=== PATIENT | male | born 1965 | race Caucasian/White ===

== ENCOUNTER → 2018-04-14 10:59 | Outpatient (CLI) | payer SELFPAY ==
--- NOTE | 2018-04-14 11:01 | XR_ITS ---
XR clavicle LT CLINICAL INDICATION: Follow-up fracture ITS.REASON: left clavicle fx ORDERING PHYSICIAN: Richard Armstrong MD PATIENT AGE: 52 years Comparison: 04/06/2018 FINDINGS: Comminuted displaced distal clavicle fracture once again noted. There is 1 cm inferior displacement of the distal fracture fragment with comminution along the infra aspect of the distal fracture fragment. Overall no significant change compared to the previous exam. IMPRESSION: No change comminuted displaced distal clavicle fracture
== END ==
PROVIDERS: Visit Provider Orthopaedic Surgery
DX: S42.032A Displaced fracture of lateral end of left clavicle, initial encounter for closed fracture (principal)
CPT/HCPCS: 73000

== ENCOUNTER → 2018-05-06 12:24 | Outpatient (CLI) | payer OTHER, SELFPAY ==
--- NOTE | 2018-05-06 12:29 | XR_ITS ---
XR clavicle LT CLINICAL INDICATION: Follow-up fracture ITS.REASON: lateral end of clavicle fx ORDERING PHYSICIAN: Richard Armstrong MD PATIENT AGE: 52 years Comparison: 04/14/2018 FINDINGS: Displaced distal clavicular fracture once again noted with 1 cm inferior displacement of the distal fracture fragment with comminution of the distal fracture fragment. No significant callus formation. IMPRESSION: No change displaced comminuted distal clavicle fracture
== END ==
PROVIDERS: Visit Provider Orthopaedic Surgery
DX: S42.002A Fracture of unspecified part of left clavicle, initial encounter for closed fracture (principal)
CPT/HCPCS: 73000

== ENCOUNTER → 2018-05-27 08:40 | Outpatient (CLI) | payer OTHER, SELFPAY ==
--- NOTE | 2018-05-27 08:44 | XR_ITS ---
XR clavicle LT CLINICAL INDICATION: Pain, follow-up fracture ITS.REASON: follow up clavicle fx ORDERING PHYSICIAN: Richard Armstrong MD PATIENT AGE: 52 years Comparison: 05/06/2018 FINDINGS: No significant change in the displaced distal clavicular fracture. The distal fracture fragment is displaced inferiorly x 10 mm. No significant callus formation. IMPRESSION: No change displaced distal clavicular fracture
== END ==
PROVIDERS: Visit Provider Orthopaedic Surgery
DX: S42.002A Fracture of unspecified part of left clavicle, initial encounter for closed fracture (principal)
CPT/HCPCS: 73000

== ENCOUNTER → 2018-08-06 09:20 | Outpatient (CLI) | payer OTHER, SELFPAY ==
--- NOTE | 2018-08-06 09:24 | XR_ITS ---
XR clavicle LT CLINICAL INDICATION: Follow-up clavicular fracture ITS.REASON: left clavicle fracture fu ORDERING PHYSICIAN: Richard Armstrong MD PATIENT AGE: 52 years Comparison: 05/27/2018 FINDINGS: There is a mildly displaced distal clavicular fracture. The distal fracture fragment appears slightly more displaced compared to the previous exam inferiorly and laterally this could be positional. Proximal mid aspect of left clavicle is unremarkable. There is an old right clavicular fracture. IMPRESSION: Displaced distal clavicular fracture with no obvious callus formation
== END ==
PROVIDERS: PCP Family Medicine; Visit Provider Orthopaedic Surgery
DX: S42.002A Fracture of unspecified part of left clavicle, initial encounter for closed fracture (principal)
CPT/HCPCS: 73000

== ENCOUNTER → 2018-08-11 13:28 | Outpatient (CLI) | payer OTHER, SELFPAY ==
--- NOTE | 2018-08-11 13:32 | XR_ITS ---
XR hip RT 2-3V w/pelvis Ordering Physician: Richard Armstrong MD Patient Age: 52 years: Male HISTORY: ITS.REASON: right hip pain TECHNIQUE: AP Right hip AP and frog-leg view. AP pelvis included COMPARISON : CT abdomen and pelvis [2014 FINDINGS Severe arthritic changes right hip. Marked change when compared to normal-appearing right hip June 2014 Findings most compatible with AVN. Frontal projection shows typical Flattening at superior femoral head with collapsed segment and sclerosis of. Frog-leg view nicely demonstrates the sclerotic fragment with lucent margin here at the superior aspect of the femoral head..- This fragment spans over 3 cm wide. There is sclerosis dense sclerosis throughout this fragment. There is a lucent margin with Sclerosis is seen beneath this fragment. Findings suggest Stage IV AVN. There is marked narrowing of the superior joint space with [id number] appearance at the superior left hip joint. The femoral neck is intact. Trochanteric region intact on right. AP pelvis shows a left hip to be intact femoral head on left intact. The SI joints sacrum iliac bones intact. Mild hypertrophic changes about the pubis There are some degenerative changes and marginal osteophytes to the left at the lower L-spine .. IMPRESSION: ------- 1. AVN superior right femoral head. ... Collapse endplate in the superior femoral head with a discrete here. Sclerotic AVN fragment seen at the dome of right femoral head ... Severe resulting arthritic changes right hip joint space. . These Changes here have all developed since 2013 studies
== END ==
PROVIDERS: PCP Family Medicine; Visit Provider Orthopaedic Surgery
DX: M25.551 Pain in right hip (principal)
CPT/HCPCS: 73502

== ENCOUNTER → 2018-08-20 15:33 | Outpatient (CLI) | payer OTHER, SELFPAY ==
[2018-08-20 16:06] LABS: Basophils # 0.1 K/mm3 (0-0.2); Basophils % 1.7 % (0.1-2.0); Eosinophils # 0.4 K/mm3 (0.0-0.4); Eosinophils % 6.4 % (0.1-12.0); Hematocrit 40.1 % (42.0-52.0); Hemoglobin 12.7 g/dL (14.1-18.0); Lymphocytes # 1.7 K/mm3 (0.7-4.5); Lymphocytes % 26.6 % (10-50); Mean Corpuscular HGB Conc 31.6 g/dL (31.8-35.4); Mean Corpuscular Hemoglobin 34.7 pg (27.0-31.2); Mean Corpuscular Volume 110.1 fl (80-94); Mean Platelet Volume 7.7 fl (7.4-10.4); Monocytes # 0.5 K/mm3 (0.1-1.0); Monocytes % 7.9 % (1.7-9.3); Neutrophils # 3.7 K/mm3 (1.8-7.8); Neutrophils % 57.3 % (37.0-80.0); Platelet Count 131 K/mm3 (142-424); Red Blood Count 3.64 M/mm3 (4.60-6.20); Red Cell Distribution Width 13.6 % (11.5-17.5); White Blood Count 6.4 K/mm3 (4.8-10.8)
[2018-08-22 10:57] LABS: Vitamin B12 1363 pg/mL (232-1245)
== END ==
PROVIDERS: Visit Provider Internal Medicine Medical Oncology
DX: D64.9 Anemia, unspecified (principal)
CPT/HCPCS: 36415; 82607; 85025

== ENCOUNTER → 2019-07-07 10:10 | Outpatient (CLI) | payer OTHER, SELFPAY ==
--- NOTE | 2019-07-07 10:23 | XR_ITS ---
PROCEDURE: XR SACROILIAC JOINT BI MIN 3V CLINICAL INDICATION: SI JOINT PAIN,LBP W/SCIATICA Low back pain COMPARISON: XR LUMBAR SPINE MIN 4V from 07/07/2019 FINDINGS: The SI joints have an unremarkable appearance. No lytic or blastic change. No significant degenerative change IMPRESSION: Negative SI joints a the Dictated by: Contreras Dominguez MD 07/07/2019 11:19 Electronically signed by Contreras Dominguez MD in [place] 07/07/2019 11:19
--- NOTE | 2019-07-07 10:23 | XR_ITS ---
PROCEDURE: XR LUMBAR SPINE MIN 4V CLINICAL INDICATION: SI JOINT PAIN,LBP W/SCIATICA Back pain, difficulty walking COMPARISON: ABDPELW/O CT ABD PELVIS W/O CONTRAST from 06/26/2014 FINDINGS: Mild lumbar curvature convex right. Left-sided bridging osteophytes are present at L3-L4. Mild facet arthritic changes are present at L4-5. No fracture or dislocation. There is degenerative disc disease at T12-L1 and L5-S1. No fracture or dislocation. Generalized vascular calcification noted and there is a total right hip prosthesis present IMPRESSION: Mild degenerative changes as described above Dictated by: Contreras Dominguez MD 07/07/2019 11:13 Electronically signed by Contreras Dominguez MD in [place] 07/07/2019 11:13
== END ==
PROVIDERS: PCP Family Medicine; Visit Provider Family Medicine
DX: M54.5 Low back pain (principal); M54.31 Sciatica, right side
CPT/HCPCS: 72110; 72202

== ENCOUNTER 2019-07-16 09:48 | Outpatient (RCR) | payer OTHER, SELFPAY | END 2019-07-16 09:50 | disposition home or self-care (01) | LOC: PT 09:48 | PROVIDERS: Visit Provider Family Medicine | DX: M54.31 Sciatica, right side (principal) | CPT/HCPCS: 97163 ==

== ENCOUNTER 2020-06-21 11:13 | Observation (INO) | payer OTHER, SELFPAY ==
[2020-06-21] VITALS (12 sets, daily range): BP systolic 119–168; BP diastolic 74–100; PULSE 62–105; RESP 16–20; TEMP 36.7–36.9; O2SAT 96–98; BMI 19.8; BMI 17.4
--- NOTE | 2020-06-21 11:39 | HMH.EDALCO ---
ED Disposition Clinical Impression: Dehydration Alcohol withdrawal syndrome Qualifiers: Complication of substance-induced condition: with unspecified complication Qualified Code(s): F10.239 - Alcohol dependence with withdrawal, unspecified Disposition: Admitted As Inpatient Condition on Discharge: Fair - Critical Care Critical Care Time: No Attestation: On 06/21/20, the high probability of a clinically significant, sudden or life threatening deterioration of the following system(s) required my full and direct attention, intervention and personal management. The time I documented below is in addition to time spent performing reported procedures but includes the following listed in this critical care notation. Medical Decision Making - Medical Records Medical records reviewed: Yes: I reviewed the patient's medical records. - Todd Inquiry Pt receiving controlled substance: Yes Todd was queried for this patient: No Reason not queried -: Emergent pt cond-no time Risks and benefits of using a controlled substance: were discussed with pt by me Vital Signs: 06/21/20 11:23 06/21/20 12:09 06/21/20 12:38 Temperature 98.1 F Temperature Source Oral Pulse Rate [Right Brachial] 105 H 85 62 Respiratory Rate 17 Blood Pressure [Right Arm] 168/100 H 141/90 H 131/83 Blood Pressure Mean [Right Arm] 122 107 99 Blood Pressure Source [Right Arm] Automatic Cuff Automatic Cuff Automatic Cuff Blood Pressure Position [Right Arm] Sitting Sitting Sitting 02 Sat by Pulse Oximetry 96 98 98 Oxygen Delivery Method Room Air Room Air Room Air - Lab Data Lab results reviewed: Yes: I reviewed the patient's lab results. Lab Results 06/21/20 12:05: WBC 6.2, RBC 4.57 L, Hgb 16.7, Hct 48.3, MCV 105.6 H, MCH 36.5 H, MCHC 34.5, RDW 13.7, Plt Count 121 L, MPV 8.6, Neut % (Auto) 59.5, Lymph % (Auto) 27.6, Yancey % (Auto) 10.3 H, Eos % (Auto) 1.2, Baso % (Auto) 1.4, Neut # (Auto) 3.7, Lymph # (Auto) 1.7, [place]ancey # (Auto) 0.6, Eos # (Auto) 0.1, Baso # (Auto) 0.1 06/21/20 12:05: Sodium 137, Potassium 3.4 L, Chloride 99, Carbon Dioxide 23, Anion Gap 18.4 H, BUN 4 L, Creatinine 0.70, Estimated Creat Clear 119, Estimated GFR 118, Est GFR ( Amer) 143, Glucose 200 H, Calcium 9.2, Total Bilirubin 2.3 H, AST 218 H, ALT 91 H, Alkaline Phosphatase 81, Total Protein 7.6, Albumin 4.3, Globulin 3.3 H, Albumin/Globulin Ratio 1.3, Lipase 317 H 06/21/20 12:05: Plasma/Serum Alcohol 59 H Result diagrams: 06/21/20 12:05 06/21/20 12:05 Orders (Tests/Meds): ED MEDICATIONS Generic Name Dose Route Start Last Admin Trade Name Freq PRN Reason Stop Dose Admin Folic Acid 1 mg 06/21/20 13:00 Folic Acid 1mg Tablet PO 07/21/20 12:59 DAILY JOHNNA Haloperidol 5 mg 06/21/20 12:45 Haloperidol 5 Mg Tablet PO 07/21/20 12:44 Q1HP PRN Agitation Sodium Chloride 1,000 mls @ 999 mls/hr 06/21/20 12:15 06/21/20 12:12 Sod Chlor 0.9% 1000ml Bag IV 06/21/20 13:15 999 mls/hr .Q1H1M JOHNNA Administration Sodium Chloride 1,000 mls @ 999 mls/hr 06/21/20 12:45 Sod Chlor 0.9% 1000ml Bag IV 06/21/20 13:45 .Q1H1M JOHNNA Multivitamins 10 ml/ Thiamine 1,015 mls @ 150 mls/hr 06/21/20 12:45 HCl 100 mg/ Magnesium Sulfate IV 06/21/20 19:30 2 gm/ Lactated Ringer's .Q6H46M JOHNNA Ibuprofen 400 mg 06/21/20 12:43 Ibuprofen 400 Mg Tablet PO 07/21/20 12:42 Q6HP PRN Mild Pain Multivitamins 1 each 06/21/20 17:00 Multivitamin Tablet PO 07/21/20 16:59 1700 [facility] Ondansetron HCl 4 mg 06/21/20 12:43 Ondansetron 4mg/2ml Vial IV 07/21/20 12:42 Q8HP PRN Nausea Oxazepam 15 mg 06/23/20 13:00 Oxazepam 15 Mg Capsule PO 07/23/20 12:59 Q6H JOHNNA Oxazepam 30 mg 06/21/20 12:45 Oxazepam 15 Mg Capsule PO 06/23/20 06:46 Q6H JOHNNA Pantoprazole Sodium 40 mg 06/22/20 09:00 Pantoprazole 40mg Tablet PO 07/22/20 08:59 DAILY JOHNNA Thiamine HCl 100 mg 06/21/20 13:00 Thiamine 100mg Tablet
[2020-06-21 12:25] LABS: Basophils # 0.1 K/mm3 (0-0.2); Basophils % 1.4 % (0.1-2.0); Eosinophils # 0.1 K/mm3 (0.0-0.4); Eosinophils % 1.2 % (0.1-12.0); Hematocrit 48.3 % (42.0-52.0); Hemoglobin 16.7 g/dL (14.1-18.0); Lymphocytes # 1.7 K/mm3 (0.7-4.5); Lymphocytes % 27.6 % (10-50); Mean Corpuscular HGB Conc 34.5 g/dL (31.8-35.4); Mean Corpuscular Hemoglobin 36.5 pg (27.0-31.2); Mean Corpuscular Volume 105.6 fl (80-94); Mean Platelet Volume 8.6 fl (7.4-10.4); Monocytes # 0.6 K/mm3 (0.1-1.0); Monocytes % 10.3 % (1.7-9.3); Neutrophils # 3.7 K/mm3 (1.8-7.8); Neutrophils % 59.5 % (37.0-80.0); Platelet Count 121 K/mm3 (142-424); Red Blood Count 4.57 M/mm3 (4.60-6.20); Red Cell Distribution Width 13.7 % (11.5-17.5); White Blood Count 6.2 K/mm3 (4.8-10.8)
[2020-06-21 12:27] LABS: Chloride 99 mmol/L (98-107); Potassium 3.4 mmoL/L (3.5-5.1); Sodium 137 mmol/L (136-145)
[2020-06-21 12:30] LABS: Alanine Aminotransferase 91 U/L (12-78); Albumin Level 4.3 g/dl (3.5-5.0); Albumin/Globulin Ratio 1.3 (1.1-1.8); Alkaline Phosphatase 81 U/L (38-126); Anion Gap 18.4 mEq/L (5-15); Aspartate Amino Transferase 218 U/L (17-59); Bilirubin,Total 2.3 mg/dl (0.2-1.3); Blood Urea Nitrogen 4 mg/dl (9-20); Calcium 9.2 mg/dl (8.4-10.2); Carbon Dioxide 23 mmol/L (22.0-30.0); Creatinine Clearance Estimated 119 mL/min (50-200); Estimated Glomerular Filt Rate 118 ml/min (>60); GFR (African American) 143 ML/MIN (>60); Globulin 3.3 g/dL (1.3-3.2); Glucose 200 mg/dl (74-100); Lipase 317 U/L (23-300); Total Protein,Serum 7.6 g/dl (6.3-8.2)
[2020-06-21 12:31] LABS: Ethyl Alcohol 59 mg/dl (0-10)
--- NOTE | 2020-06-21 12:40 | PC.NURSE ---
CASEY GARDNER speaking with Dr. Flaherty who is neurological surgeon for service pts.
--- NOTE | 2020-06-21 12:43 | PC.NURSE ---
Care Management aware of admission.
[2020-06-21 13:27] LABS: Magnesium 1.6 mg/dl (1.6-2.3)
[2020-06-21 13:28] LABS: Phosphorous 1.7 mg/dl (2.5-4.5)
[2020-06-21 13:34] LABS: INR 1.28 (0.9-1.1); Prothrombin Time 13.9 seconds (9.4-11.8)
[2020-06-21 13:35] LABS: Activated Partial Thrombo Time 26.5 seconds (23.6-34.0)
--- NOTE | 2020-06-21 13:52 | HMH.PHAVTE ---
[facility] Pharmacy VTE Monitoring - Patient Demographics Admission date: 06/21/20 Report Date: 06/21/20 Time: 13:52 Allergies/Adverse Reactions: Patient Allergies No Known Drug Allergies [NKDA] Allergy (Unknown, Verified 06/21/20 11:33) Height: 1.85 m Weight: 68.039 kg Patient Problems: Current Active Problems Alcohol withdrawal syndrome (Acute) Dehydration (Acute) - VTE Risk Labs: VTE Related Lab Results Hgb 16.7 g/dL (14.1-18.0) 06/21/20 12:05 Hct 48.3 % (42.0-52.0) 06/21/20 12:05 Plt Count 121 K/mm3 (142-424) L 06/21/20 12:05 PT 13.9 seconds (9.4-11.8) H 06/21/20 12:05 INR 1.28 (0.9-1.1) H 06/21/20 12:05 APTT 26.5 seconds (23.6-34.0) 06/21/20 12:05 BUN 4 mg/dl (9-20) L 06/21/20 12:05 Creatinine 0.70 mg/dl (0.66-1.25) 06/21/20 12:05 Estimated Creat Clear 119 mL/min (50-200) 06/21/20 12:05 Clinical Trial Participant: No - Prophylaxis VTE Prophylaxis Ordered?: Yes Types of VTE Prophylaxis: TEDS Knee High
[2020-06-21 13:53] LABS: Coronavirus 19 IgG Antibody Negative (Negative); Coronavirus 19 IgM Antibody Negative (Negative)
--- NOTE | 2020-06-21 14:04 | PC.NURSE ---
report given to candern
[2020-06-21 15:54] LABS: Microscopic, Urine URINE MICROSCOPIC (MICROSCOPIC)
[2020-06-21 15:55] LABS: Appearance,Urine CLEAR (Clear); Bilirubin,Urine Negative (Negative); Blood, Urine Negative (Negative); Color,Urine YELLOW (Yellow); Glucose,Urine (UA) Negative (Negative); Ketones,Urine Negative (Negative); Leukocyte Esterase,Urine Negative (Negative); Nitrate,Urine Negative (Negative); PH,Urine 8.5 (5.0-8.5); Protein,Urine Negative (Negative)
[2020-06-21 16:07] LABS: Barbiturates Screen,Urine Negative ng/ml (<200); Benzodiazepines Screen,Urine Negative ng/ml (<200)
[2020-06-21 16:08] LABS: Amphetamine/Metha Screen,Urine Negative ng/ml (<1000); Cocaine Screen,Urine Negative ng/ml (<300)
[2020-06-21 16:09] LABS: Methadone Screen,Urine Negative ng/ml (<300)
[2020-06-21 16:10] LABS: Cannabinoid Screen,Urine Positive ng/ml (<50); Opiate Screen,Urine Negative ng/ml (<300)
[2020-06-21 16:11] LABS: Phencyclidine Screen,Urine Negative ng/ml (<25)
[2020-06-21 16:11] LABS: Bacteria,Urine 1+ /lpf; RBC,Urine Occasional #/hpf (0-3)
--- NOTE | 2020-06-21 17:08 | HMH.HP ---
*Admission Date: 06/21/20 <Kimberlee Schmidt 06/21/20 17:10> *Chief complaint: Alcohol withdrawal <Kimberlee Schmidt 06/21/20 17:34> *History of present illness: Mr. Mejia is a 54-year-old male with a history of hypertension and known Alcoholism who presented to the emergency room for evaluation of alcohol withdrawal. Initially he was not sure which direction he wished to proceed, that is inpatient hospitalization versus inpatient treatment facility or detoxing at home. He did try to detox at home the yesterday but was so anxious and tremulous that he ended up drinking throughout the night and actually took a shot of vodka just prior to arrival to the emergency room. He reported that he had tried detox 3 times. He actually did not drink for total of 120 days at one time. This was about a year ago. He has been drinking on and off for the past year and states this is due to family issues and family deaths. He feels nauseated when he eats and feels like he is dehydrated. He does complain of ongoing feelings of anxiety and is tremulous. He presented to the hospital with his daughter who is a nursing center tutor. Options were discussed with him in the emergency room and he decided to be admitted for further care with detox. Drug screen was positive for marijuana. Plasma alcohol level was high at 59. SARS Covid IgG was negative and IgM was negative. Liver function studies were elevated. Potassium was slightly low. At the time of this exam patient remains very anxious and somewhat tremulous at times. He has been placed on alcohol withdrawal orders. He will also have a nicotine patch placed. <Kimberlee Schmidt 06/21/20 17:34> [facility] History Medical History: Reports:: Hypertension Denies:: Cancer, Diabetes Mellitus Type 1, Diabetes Mellitus Type 2, MRSA <Kimberlee Schmidt 06/21/20 17:10> *Have you ever received a pneumonia vaccine?: No <Schmidt,Kimbelree 06/21/20 17:10> *Have you received a flu vaccine this season?: No <Schmidt,Kimberlee 06/21/20 17:10> Comment:: Patient states he has esophageal varices, cirrhosis of liver, sciatica, right hip pain, and left clavicle pain from a fracture. <Kimberlee Schmidt 06/21/20 17:34> Other Surgeries: Yes: No Previous Surgery <Kimberlee Schmidt 06/21/20 17:10> Amputation: No <Kimberlee Schmidt 06/21/20 17:10> - *Social History Last grade of school completed: Some college <Kimberlee Schmidt 06/21/20 17:10> Smoking Status: Current every day smoker <Kimberlee Schmidt 06/21/20 17:10> Tobacco Type: cigarettes <Kimberlee Schmidt 06/21/20 17:10> # Packs/Day (cigarettes): 1 <Kimberlee Schmidt 06/21/20 17:10> Alcohol Intake: current <Kimberlee Schmidt 06/21/20 17:10> Alcohol Intake Frequency:: other (Drinks a gallon of vodka a day.) <BrayanKimberlee 06/21/20 17:34> Substance Use Type: marijuana <Kimberlee Schmidt 06/21/20 17:34> *Occupational Status:: employed <BrayanKimberlee 06/21/20 17:10> Housing: apartment <Kimberlee Schmidt 06/21/20 17:10> Household Members: children <Kimberlee Schmidt 06/21/20 17:10> *Travel in the last 8 weeks: None <BrayanKimberlee 06/21/20 17:10> Family Hx:: Hypertension <BrayanKimberlee 06/21/20 17:10> Review of Systems - Constitutional Reports chills, Reports lack of energy <BrayanKimberlee 06/21/20 17:34> - Eyes Reports change in vision <BrayanKimberlee 06/21/20 17:34> - ENT Denies ear pain, Denies sore throat <BrayanKimberlee 06/21/20 17:34> - *Cardiovascular Reports shortness of breath, Denies chest pain, Denies generalized swelling, Denies irregular heart rhythm, Denies leg swelling, Denies rapid, pounding, or irregular heartbeat <SchmidtKimberlee Luz 06/21/20 17:34> - *Respiratory Denies chest congestion, Denies cough, Denies shortness of breath <SchmidtKimberlee 06/21/20 17:34> - *Gastrointestinal Reports nausea, Denies abdominal pain, Denies coffee ground vomit, Denies constipation, Denies vomiting blood, Denies bright, red blood in stools, Denies loose stools, Denies tricia
[2020-06-21 17:41] LABS: Basophils # 0.1 K/mm3 (0-0.2); Eosinophils # 0.1 K/mm3 (0.0-0.4); Mean Platelet Volume 8.8 fl (7.4-10.4); Neutrophils # 3.3 K/mm3 (1.8-7.8); Red Cell Distribution Width 13.2 % (11.5-17.5)
[2020-06-21 17:43] LABS: Basophils % 1.5 % (0.1-2.0); Eosinophils % 2.2 % (0.1-12.0); Hematocrit 44.2 % (42.0-52.0); Lymphocytes # 1.6 K/mm3 (0.7-4.5); Lymphocytes % 29.1 % (10-50); Mean Corpuscular HGB Conc 33.8 g/dL (31.8-35.4); Mean Corpuscular Hemoglobin 36.7 pg (27.0-31.2); Mean Corpuscular Volume 108.5 fl (80-94); Monocytes # 0.3 K/mm3 (0.1-1.0); Monocytes % 6.2 % (1.7-9.3); Neutrophils % 60.9 % (37.0-80.0); Platelet Count 95 K/mm3 (142-424); Red Blood Count 4.08 M/mm3 (4.60-6.20); White Blood Count 5.4 K/mm3 (4.8-10.8)
[2020-06-21 17:45] LABS: Hemoglobin 14.9 g/dL (14.1-18.0)
[2020-06-21 17:53] LABS: Chloride 103 mmol/L (98-107)
[2020-06-21 17:54] LABS: Potassium 3.1 mmoL/L (3.5-5.1); Sodium 135 mmol/L (136-145)
[2020-06-21 17:56] LABS: Alanine Aminotransferase 89 U/L (12-78); Alkaline Phosphatase 63 U/L (38-126); Anion Gap 11.1 mEq/L (5-15); Aspartate Amino Transferase 206 U/L (17-59); Bilirubin,Total 2.2 mg/dl (0.2-1.3); Blood Urea Nitrogen 4 mg/dl (9-20); Carbon Dioxide 24 mmol/L (22.0-30.0); Creatinine Clearance Estimated 122 mL/min (50-200); Estimated Glomerular Filt Rate 141 ml/min (>60); GFR (African American) 171 ML/MIN (>60)
[2020-06-21 17:57] LABS: Albumin Level 3.6 g/dl (3.5-5.0); Albumin/Globulin Ratio 1.2 (1.1-1.8); Globulin 2.9 g/dL (1.3-3.2); Glucose 223 mg/dl (74-100); Magnesium 2.1 mg/dl (1.6-2.3); Total Protein,Serum 6.5 g/dl (6.3-8.2)
[2020-06-21 17:58] LABS: Calcium 8.3 mg/dl (8.4-10.2)
[2020-06-21 18:09] LABS: Activated Partial Thrombo Time 23.3 seconds (23.6-34.0); Phosphorous 1.9 mg/dl (2.5-4.5)
--- NOTE | 2020-06-21 19:16 | PC.NURSE ---
report given to quang
--- NOTE | 2020-06-21 19:31 | PC.NURSE ---
PT AO*4, ABLE TO FOLLOW COMMANDS, WHEN FIRST ARRIVING TO FLOOR, PT HAD NOTICEABLE TREMORS IN BUE, AT THIS TIME PATIENT TREMORS HAVE DECREASED AND HE IS RESTING MORE COMFORTABLY, CIWA COMPLETED AT TIME OF WRITING PATIENT IS 5 ON CIWA SCALE, HE HAS DENIED PAIN AND N/V/D, CURRENTLY ON RA WITH NO C/O SOA, LUNGS CLEAR TO AUSCULTATION, SEIZURE PADS IN PLACE, FAMILY AT BEDSIDE, BP HAS BEEN ELEVATED BUT STABLE SINCE ADMISSION TO UNIT, NO NEEDS AT THIS TIME.
[2020-06-22] VITALS (8 sets, daily range): BP systolic 126–147; BP diastolic 71–83; PULSE 70–93; RESP 16–20; TEMP 36.4–37.2; O2SAT 94–98; BMI 17.4
--- NOTE | 2020-06-22 04:23 | PC.NURSE ---
Pt has slept most of this shift. CIWA has ranged 4-5 this shift. DT s/sx have been hand tremors and sweating. Pt remains pleasant. Denies soa/pain. Daughter remains at bedside.
[2020-06-22 06:33] LABS: Basophils # 0.1 K/mm3 (0-0.2); Basophils % 1.4 % (0.1-2.0); Eosinophils # 0.2 K/mm3 (0.0-0.4); Eosinophils % 3.9 % (0.1-12.0); Hematocrit 40.3 % (42.0-52.0); Hemoglobin 13.5 g/dL (14.1-18.0); Lymphocytes # 2.2 K/mm3 (0.7-4.5); Lymphocytes % 36.3 % (10-50); Mean Corpuscular HGB Conc 33.5 g/dL (31.8-35.4); Mean Corpuscular Hemoglobin 36.3 pg (27.0-31.2); Mean Corpuscular Volume 108.1 fl (80-94); Mean Platelet Volume 8.6 fl (7.4-10.4); Monocytes # 0.4 K/mm3 (0.1-1.0); Monocytes % 7.2 % (1.7-9.3); Neutrophils # 3.1 K/mm3 (1.8-7.8); Neutrophils % 51.2 % (37.0-80.0); Platelet Count 79 K/mm3 (142-424); Red Blood Count 3.73 M/mm3 (4.60-6.20); Red Cell Distribution Width 13.6 % (11.5-17.5); White Blood Count 6.1 K/mm3 (4.8-10.8)
[2020-06-22 06:47] LABS: Chloride 108 mmol/L (98-107); Sodium 135 mmol/L (136-145)
[2020-06-22 06:48] LABS: Potassium 3.4 mmoL/L (3.5-5.1)
[2020-06-22 06:50] LABS: Alanine Aminotransferase 64 U/L (12-78); Albumin Level 2.9 g/dl (3.5-5.0); Alkaline Phosphatase 55 U/L (38-126); Anion Gap 7.4 mEq/L (5-15); Aspartate Amino Transferase 114 U/L (17-59); Bilirubin,Total 1.9 mg/dl (0.2-1.3); Blood Urea Nitrogen 5 mg/dl (9-20); Carbon Dioxide 23 mmol/L (22.0-30.0); Creatinine Clearance Estimated 121 mL/min (50-200); Estimated Glomerular Filt Rate 141 ml/min (>60); GFR (African American) 171 ML/MIN (>60); Globulin 2.8 g/dL (1.3-3.2); Total Protein,Serum 5.7 g/dl (6.3-8.2)
[2020-06-22 06:51] LABS: Calcium 7.6 mg/dl (8.4-10.2); Glucose 126 mg/dl (74-100)
--- NOTE | 2020-06-22 08:22 | HMH.ACPN2 ---
Internal Medicine - PN: Subj *Date: 06/22/20 *Time: 08:22 Interval history: Patient feels better today. He was able to eat a small amount of breakfast this morning. Exam Vital signs and Labs for Last 24 Hours: Temp Pulse Resp BP Pulse Ox 97.6 F 93 H 18 133/81 96 06/22/20 07:53 06/22/20 07:53 06/22/20 07:53 06/22/20 07:53 06/22/20 07:53 Laboratory Results - last 24 hr 06/21/20 12:01: Urine Color Yellow, Urine Appearance Clear, Urine pH 8.5, Ur Specific West[place] 1.020, Urine Protein Negative, Urine Glucose (UA) Negative, Urine Ketones Negative, Urine Blood Negative, Urine Nitrate Negative, Urine Bilirubin Negative, Urine Urobilinogen 1.0, Ur Leukocyte Esterase Negative, Urine RBC Occasional, Urine WBC 3-5, Ur Squamous Epith Cells 3-5, Urine Bacteria 1+ 06/21/20 12:05: WBC 6.2, RBC 4.57 L, Hgb 16.7, Hct 48.3, MCV 105.6 H, MCH 36.5 H, MCHC 34.5, RDW 13.7, Plt Count 121 L, MPV 8.6, Neut % (Auto) 59.5, Lymph % (Auto) 27.6, [place] % (Auto) 10.3 H, Eos % (Auto) 1.2, Baso % (Auto) 1.4, Neut # (Auto) 3.7, Lymph # (Auto) 1.7, [place] # (Auto) 0.6, Eos # (Auto) 0.1, Baso # (Auto) 0.1 06/21/20 12:05: Sodium 137, Potassium 3.4 L, Chloride 99, Carbon Dioxide 23, Anion Gap 18.4 H, BUN 4 L, Creatinine 0.70, Estimated Creat Clear 119, Estimated GFR 118, Est GFR ( Amer) 143, Glucose 200 H, Calcium 9.2, Total Bilirubin 2.3 H, AST 218 H, ALT 91 H, Alkaline Phosphatase 81, Total Protein 7.6, Albumin 4.3, Globulin 3.3 H, Albumin/Globulin Ratio 1.3, Lipase 317 H 06/21/20 12:05: Plasma/Serum Alcohol 59 H 06/21/20 12:05: PT 13.9 H, INR 1.28 H, APTT 26.5 06/21/20 12:05: Phosphorus 1.7 L, Magnesium 1.6 06/21/20 12:05: SARS-CoV-2 IgG Ab (Rapid) Negative, SARS-CoV-2 IgM Ab (Rapid) Negative 06/21/20 15:32: Urine Opiates Screen Negative, Urine Methadone Screen Negative, Ur Barbituates Screen Negative, Ur Phencyclidine Scrn Negative, Ur Amphetamines Screen Negative, U Benzodiazepines Scrn Negative, Urine Cocaine Screen Negative, U Marijuana (THC) Screen Positive H 06/21/20 17:32: WBC 5.4, RBC 4.08 L, Hgb 14.9 D, Hct 44.2, MCV 108.5 H, MCH 36.7 H, MCHC 33.8, RDW 13.2, Plt Count 95 L, MPV 8.8, Neut % (Auto) 60.9, Lymph % (Auto) 29.1, [place] % (Auto) 6.2, Eos % (Auto) 2.2, Baso % (Auto) 1.5, Neut # (Auto) 3.3, Lymph # (Auto) 1.6, [place] # (Auto) 0.3, Eos # (Auto) 0.1, Baso # (Auto) 0.1 06/21/20 17:32: APTT 23.3 L 06/21/20 17:32: Sodium 135 L, Potassium 3.1 L, Chloride 103, Carbon Dioxide 24, Anion Gap 11.1, BUN 4 L, Creatinine 0.60 L, Estimated Creat Clear 122, Estimated GFR 141, Est GFR ( Amer) 171, Glucose 223 H, Calcium 8.3 L, Phosphorus 1.9 L, Magnesium 2.1 D, Total Bilirubin 2.2 H, AST 206 H, ALT 89 H, Alkaline Phosphatase 63, Total Protein 6.5, Albumin 3.6 D, Globulin 2.9, Albumin/Globulin Ratio 1.2 06/22/20 06:07: WBC 6.1, RBC 3.73 L, Hgb 13.5 L, Hct 40.3 L, MCV 108.1 H, MCH 36.3 H, MCHC 33.5, RDW 13.6, Plt Count 79 L, MPV 8.6, Neut % (Auto) 51.2, Lymph % (Auto) 36.3, [place] % (Auto) 7.2, Eos % (Auto) 3.9, Baso % (Auto) 1.4, Neut # (Auto) 3.1, Lymph # (Auto) 2.2, [place] # (Auto) 0.4, Eos # (Auto) 0.2, Baso # (Auto) 0.1 06/22/20 06:07: Sodium 135 L, Potassium 3.4 L, Chloride 108 H, Carbon Dioxide 23, Anion Gap 7.4, BUN 5 L, Creatinine 0.60 L, Estimated Creat Clear 121, Estimated GFR 141, Est GFR ( Amer) 171, Glucose 126 H D, Calcium 7.6 L, Total Bilirubin 1.9 H, AST 114 H D, ALT 64 D, Alkaline Phosphatase 55, Total Protein 5.7 L, Albumin 2.9 L D, Globulin 2.8, Albumin/Globulin Ratio 1.0 L I & O for Last 24 hours: Intake & Output 06/19/20 06/20/20 06/21/20 06/22/20 23:59 23:59 23:59 23:59 Intake Total 1793 / 1793 Balance 1793 / 1793 Weight 132 lb 131 lb 3.506 oz - Constitutional no acute distress - *Routine HEENT Exam Head: Present: normocephalic Eye: Present: EOMI ENT: Present: mucous membranes moist - *Routine Neck Exam Present: supple. Absent: lymphadenopathy - *Routine Respiratory Exam Present: CTA bilaterally - *Routin
--- NOTE | 2020-06-22 10:18 | PC.NURSE ---
MD LEVI ASKED ABOUT FLUID ORDERS STATED TO COMPLETE INFUSION OF NS/ [id number] BEFORE BEGINNING RALLY PACK.
--- NOTE | 2020-06-22 11:12 | SW/DCPLANNER ---
Addendum entered by Marilee Mejia 06/23/20 11:57: I have followed up with this patient regarding any questions/assistance with resources provided yesterday. Patient stated that he has no further questions at this time. Patient stated that he needs to follow up with his boss prior to making any decisions. I have informed patient if he has any further questions please contact MD office or CM office. Addendum entered by Juliana Duncan 06/22/20 13:14: TOOK PATIENT INFORMATION WITH NAMES AND PHONE NUMBERS OF FACILITIES CLOSE TO THIS AREA AND ALSO SOME OUT PATIENT NUMBERS.. PATIENT TOLD ME HE HAD BEEN IN A COUPLE DIFFERENT INPATIENT OUT OF [facility] AND BEEN TO [facility] TWICE. PATIENT WAS PLEASANT AND ADMITTED HE HAD A PROBLEM AND TALKED TO ME LIKE HE WAS GOING TO DO SOMETHING ABOUT HIS DRINKING.. I EXPLAINED TO HIM THE ILL EFFECTS OF DRINKING...DISPOSITION UNCERTAIN, WILL FOLLOW AND ASSIST INDICATED.. Original Note: PATIENT PRESENTED INTO THE HOSPITAL WITH A BLOOD ALCOHOL OF 59... PATIENT STATED HE DRINKS A GALLON OF VOLKA A DAY.. HE STATED HE HAS TRIED TO DETOX BUT GETS ANXIOUS, TREMULOUS AND FEELS A THOUGH HE IS DEHYDRATED... I AM GOING TO SPEAK WITH HIM ABOUT REHAB SERVICES AND PROVIDE HIM WITH A LIST OF INPATIENT AND OUT PATIENT SERVICES CLOSE TO HOME... NOT SURE WHEN HE IS GOING TO DISCHARGE BUT WILL PROVIDE HIM WITH A LIST IN CASE INPATIENT IS NECESSARY...
--- NOTE | 2020-06-22 17:41 | PC.NURSE ---
PT AP*4, ANSWERS APPROPRIATELY AND FOLLOWS COMMANDS, PERIPHERAL TREMORS HAVE DECREASED TODAY, PT HAS NO REQUIRED PRN HALDOL THIS SHIFT, APPETITE HAS INCREASED, PT DENIES HALLUCINATIONS, NOT CURRENTLY DIAPHORETIC, DENIES PAIN/UNUSUAL SENSATIONS, VSS STABLE, NSR ON TELE, O2 SAT WNL ON RA, DENIES N/V/D, WILL CONTINUE TO MONITOR.
--- NOTE | 2020-06-22 20:23 | PC.NURSE ---
He is A&Ox4. He continues in seizure precautions. No seizure activity noted. CIWA scale 1 at this time. He reports anxiety, tremors, and diarrhea. States his last BM was on today (06/22/20). He reports mild cravings. Denies hallucinations, nausea, vomiting, and sensitivity to light and sound. He received a [place] boost per his request. denies pain. VSS.
[2020-06-23 04:00] VITALS: BP 133/76; PULSE 82; RESP 18; TEMP 37; O2SAT 95
[2020-06-23 05:20] VITALS: BMI 17.2
[2020-06-23 06:30] LABS: Basophils # 0.1 K/mm3 (0-0.2); Basophils % 1.2 % (0.1-2.0); Eosinophils # 0.4 K/mm3 (0.0-0.4); Eosinophils % 5.4 % (0.1-12.0); Hematocrit 43.8 % (42.0-52.0); Hemoglobin 14.6 g/dL (14.1-18.0); Lymphocytes % 26.6 % (10-50); Mean Corpuscular HGB Conc 33.3 g/dL (31.8-35.4); Mean Corpuscular Hemoglobin 36.4 pg (27.0-31.2); Mean Corpuscular Volume 109.4 fl (80-94); Mean Platelet Volume 8.8 fl (7.4-10.4); Monocytes # 0.6 K/mm3 (0.1-1.0); Monocytes % 7.6 % (1.7-9.3); Neutrophils # 4.4 K/mm3 (1.8-7.8); Neutrophils % 59.1 % (37.0-80.0); Platelet Count 75 K/mm3 (142-424); Red Blood Count 4.01 M/mm3 (4.60-6.20); Red Cell Distribution Width 13.4 % (11.5-17.5); White Blood Count 7.4 K/mm3 (4.8-10.8)
[2020-06-23 06:37] LABS: Chloride 106 mmol/L (98-107); Potassium 4.3 mmoL/L (3.5-5.1); Sodium 135 mmol/L (136-145)
[2020-06-23 06:40] LABS: Anion Gap 10.3 mEq/L (5-15); Blood Urea Nitrogen 7 mg/dl (9-20); Carbon Dioxide 23 mmol/L (22.0-30.0); Creatinine Clearance Estimated 120 mL/min (50-200); Estimated Glomerular Filt Rate 141 ml/min (>60); GFR (African American) 171 ML/MIN (>60); Glucose 136 mg/dl (74-100)
[2020-06-23 07:14] LABS: Calcium 8.5 mg/dl (8.4-10.2)
[2020-06-23 08:00] VITALS: BP 135/88; PULSE 85; RESP 18; TEMP 36.9; O2SAT 95
--- NOTE | 2020-06-23 08:50 | PC.NURSE ---
confirmed with Dr. Flaherty regarding IVFs. Pt is to receive Rally pack bag daily. Stop NS+20K IVFs while Rally pack is infusing. Once rally pack is finished, restart NS+20K.
--- NOTE | 2020-06-23 08:59 | HMH.ACPN2 ---
Internal Medicine - PN: Subj *Date: 06/23/20 *Time: 08:59 Interval history: Patient states he had a bad night last night. He did not sleep well and had some sweats. Exam Vital signs and Labs for Last 24 Hours: Temp Pulse Resp BP Pulse Ox 98.6 F 82 18 133/76 95 06/23/20 04:00 06/23/20 04:00 06/23/20 04:00 06/23/20 04:00 06/23/20 04:00 Laboratory Results - last 24 hr 06/23/20 06:10: WBC 7.4, RBC 4.01 L, Hgb 14.6, Hct 43.8, MCV 109.4 H, MCH 36.4 H, MCHC 33.3, RDW 13.4, Plt Count 75 L, MPV 8.8, Neut % (Auto) 59.1, Lymph % (Auto) 26.6, [place] % (Auto) 7.6, Eos % (Auto) 5.4, Baso % (Auto) 1.2, Neut # (Auto) 4.4, Lymph # (Auto) 2.0, [place] # (Auto) 0.6, Eos # (Auto) 0.4, Baso # (Auto) 0.1 06/23/20 06:10: Sodium 135 L, Potassium 4.3 D, Chloride 106, Carbon Dioxide 23, Anion Gap 10.3, BUN 7 L D, Creatinine 0.60 L, Estimated Creat Clear 120, Estimated GFR 141, Est GFR ( Amer) 171, Glucose 136 H, Calcium 8.5 D Vital Signs - 24 hr 06/22/20 12:00 06/22/20 16:00 06/22/20 20:00 Temperature 98.9 F 98.8 F 98.3 F Pulse Rate 70 90 Pulse Rate [Right Brachial] 92 H 83 88 Respiratory Rate 16 20 18 Blood Pressure [Left Arm] 132/76 136/71 Blood Pressure [Right Arm] 147/83 H 02 Sat by Pulse Oximetry 97 95 94 L 06/23/20 04:00 Temperature 98.6 F Pulse Rate Pulse Rate [Right Brachial] 82 Respiratory Rate 18 Blood Pressure [Left Arm] 133/76 Blood Pressure [Right Arm] 02 Sat by Pulse Oximetry 95 I & O for Last 24 hours: Intake & Output 10/27/06/21/20 06/22/20 06/23/20 23:59 23:59 23:59 23:59 Intake Total 2153 / 2153 236 / 236 Output Total 1000 / 1000 Balance 1153 / 1153 2363 / 2364 Weight 132 lb 131 lb 3.506 oz 130 lb - Constitutional no acute distress - *Routine HEENT Exam Head: Present: normocephalic Eye: Present: EOMI, PERRL ENT: Present: mucous membranes moist - *Routine Neck Exam Present: supple. Absent: lymphadenopathy - *Routine Respiratory Exam Present: CTA bilaterally - *Routine Cardiovascular Exam Present: RRR - *Routine Abdominal Exam Present: soft, normoactive bowel sounds. Absent: tenderness - *Routine Extremities Exam Absent: cyanosis, clubbing, edema - *Routine Skin Exam Present: warm. Absent: rash - *Routine Neurological Exam Present: alert, oriented X3 Assessment and Plan (1) Alcohol withdrawal syndrome Status: Acute Qualifiers: Complication of substance-induced condition: with unspecified complication Qualified Code(s): F10.239 - Alcohol dependence with withdrawal, unspecified Category: Medical Code(s): F10.239 - Alcohol dependence with withdrawal, unspecified (2) Dehydration Status: Acute Category: Medical Code(s): E86.0 - Dehydration (3) Closed left clavicular fracture Status: Chronic Qualifiers: Encounter type: subsequent encounter Clavicle location: lateral end Fracture alignment: displaced Fracture healing: with routine healing Qualified Code(s): S42.032D - Displaced fracture of lateral end of left clavicle, subsequent encounter for fracture with routine healing Category: Medical Code(s): S42.002A - Fracture of unspecified part of left clavicle, initial encounter for closed fracture (4) Hypertension Status: Acute Category: Medical Code(s): I10 - Essential (primary) hypertension (5) Abnormal results of liver function studies Status: Acute Category: Medical Code(s): R94.5 - Abnormal results of liver function studies (6) Tobacco use disorder Status: Chronic Category: Medical Code(s): F17.200 - Nicotine dependence, unspecified, uncomplicated (7) Hypokalemia Status: Acute Category: Medical Code(s): E87.6 - Hypokalemia (8) Underweight Status: Acute Category: Medical Code(s): R63.6 - Underweight - Assessment and plan all Dx Assessment and Plan for all problems:: Continue current treatment, monitor for signs of withdrawal.
--- NOTE | 2020-06-23 15:11 | SW/DCPLANNER ---
I was contacted by patients brother (Hugo Delgado) regarding him pursing [employer] for this patient. Hugo stated that patient is at harm and needs serious help. Hugo has asked if I could assist him in completing paperwork. I spoke with Dr Flaherty whom was willing to complete/sign paperwork with Em David as a notary. Paperwork was completed in Dr Flaherty's office and I will give this to Hugo this afternoon. Hugo has stated that patient does have a follow up appointment with his primary care provider next week.
--- NOTE | 2020-06-23 15:18 | INFXCTL.NOTE ---
pt left AMA. Is ambulatory. Spoke to his brother, Bonifacio Delgado, on the phone, who agrees that he will arrive to the hospital @ 1515 to pick pt up and take him home. Walked pt down to the front lobby. He insisted to wait alone for his brother to arrive. Made Dr. Flaherty aware of pt leaving AMA. AMA paper filled out by myself and pt.
--- NOTE | 2020-06-23 16:06 | P.PN_ITS ---
Internal Medicine - PN: Subj *Date: 06/23/20 *Time: 16:06 Interval history: Patient left AMA today at 3:15 pm today Exam Vital signs and Labs for Last 24 Hours: Temp Pulse Resp BP Pulse Ox 98.4 F 85 18 135/88 95 06/23/20 08:00 06/23/20 08:00 06/23/20 08:00 06/23/20 08:00 06/23/20 08:00 Laboratory Results - last 24 hr 06/23/20 06:10: WBC 7.4, RBC 4.01 L, Hgb 14.6, Hct 43.8, MCV 109.4 H, MCH 36.4 H , MCHC 33.3, RDW 13.4, Plt Count 75 L, MPV 8.8, Neut % (Auto) 59.1, Lymph % (Auto) 26.6, [place] % (Auto) 7.6, Eos % (Auto) 5.4, Baso % (Auto) 1.2, Neut # (Auto) 4.4, Lymph # (Auto) 2.0, [place] # (Auto) 0.6, Eos # (Auto) 0.4, Baso # (Auto) 0.1 06/23/20 06:10: Sodium 135 L, Potassium 4.3 D, Chloride 106, Carbon Dioxide 23, Anion Gap 10.3, BUN 7 L D, Creatinine 0.60 L, Estimated Creat Clear 120, Estimated GFR 141, Est GFR ( Amer) 171, Glucose 136 H, Calcium 8.5 D I & O for Last 24 hours: Intake & Output 06/20/20 06/21/20 06/22/20 06/23/20 23:59 23:59 23:59 23:59 Intake Total 2153 / 2153 3374 / 3374 Output Total 1000 / 1000 Balance 1153 / 1153 3374 / 3374 Weight 132 lb 131 lb 3.506 oz 130 lb Assessment and Plan (1) Alcohol withdrawal syndrome Status: Acute Qualifiers: Complication of substance-induced condition: with unspecified complication Qualified Code(s): F10.239 - Alcohol dependence with withdrawal, unspecified Category: Medical Code(s): F10.239 - Alcohol dependence with withdrawal, unspecified (2) Dehydration Status: Acute Category: Medical Code(s): E86.0 - Dehydration (3) Hypertension Status: Acute Category: Medical Code(s): I10 - Essential (primary) hypertension (4) Abnormal results of liver function studies Status: Acute Category: Medical Code(s): R94.5 - Abnormal results of liver function studies (5) Tobacco use disorder Status: Chronic Category: Medical Code(s): F17.200 - Nicotine dependence, unspecified, uncomplicated (6) Hypokalemia Status: Acute Category: Medical Code(s): E87.6 - Hypokalemia (7) Underweight Status: Acute Category: Medical Code(s): R63.6 - Underweight - Assessment and plan all Dx Assessment and Plan for all problems:: Clavicle fracture removed from problem list. Pt had information about alcohol treatment programs at time he left.
--- NOTE | 2020-06-24 21:23 | HMH.DCSUM ---
General - General Admission date:: 06/21/20 Discharge date: 06/23/20 HPI HPI: Mr. Mejia is a 54-year-old male with a history of hypertension and known Alcoholism who presented to the emergency room for evaluation of alcohol withdrawal. Initially he was not sure which direction he wished to proceed, that is inpatient hospitalization versus inpatient treatment facility or detoxing at home. He did try to detox at home the previous day but was so anxious and tremulous that he ended up drinking throughout the night and actually took a shot of vodka just prior to arrival to the emergency room. He reported that he had tried detox 3 times. He actually did not drink for a total of 120 days at one time. This was about a year ago. He had been drinking on and off for the past year and stated this was due to family issues and family deaths. He felt nauseated when he ate and thought he was dehydrated. He did complain of ongoing feelings of anxiety and was tremulous. He presented to the hospital with his daughter who is a manager nursing home. Options were discussed with him in the emergency room and he decided to be admitted for further care with detox. Drug screen was positive for marijuana. Plasma alcohol level was high at 59. SARS Covid IgG was negative and IgM was negative. Liver function studies were elevated. Potassium was slightly low. At the time of this exam patient remained very anxious and somewhat tremulous at times. He had been placed on alcohol withdrawal orders. He also had a nicotine patch placed. Hospital Course Hospital Course: In the emergency room patient received 2 L of IV fluids, 1 with rally pack. He also received Valium. During admission he continued with IV fluids with potassium. He was on alcohol withdrawal protocol and received Serax every 6 hours and Haldol as needed. He was able to eat some. He did feel better on 06/22/2020 but then on 06/23 he reported a rough night. He had not slept well and had some sweats. He continued with the alcohol protocol. The patient then left AMA around 3:15 PM on 06/23/2020. Patient did have alcohol treatment programs at the time he left. Objective Vital signs: Temp Pulse Resp BP Pulse Ox 98.4 F 85 18 135/88 95 06/23/20 08:00 06/23/20 08:00 06/23/20 08:00 06/23/20 08:00 06/23/20 08:00 Narrative: Exam Vital signs and Labs for Last 24 Hours: Temp Pulse Resp BP Pulse Ox 98.6 F 82 18 133/76 95 06/23/20 04:00 06/23/20 04:00 06/23/20 04:00 06/23/20 04:00 06/23/20 04:00 Laboratory Results - last 24 hr 06/23/20 06:10: WBC 7.4, RBC 4.01 L, Hgb 14.6, Hct 43.8, MCV 109.4 H, MCH 36.4 H, MCHC 33.3, RDW 13.4, Plt Count 75 L, MPV 8.8, Neut % (Auto) 59.1, Lymph % (Auto) 26.6, [place] % (Auto) 7.6, Eos % (Auto) 5.4, Baso % (Auto) 1.2, Neut # (Auto) 4.4, Lymph # (Auto) 2.0, [place] # (Auto) 0.6, Eos # (Auto) 0.4, Baso # (Auto) 0.1 06/23/20 06:10: Sodium 135 L, Potassium 4.3 D, Chloride 106, Carbon Dioxide 23, Anion Gap 10.3, BUN 7 L D, Creatinine 0.60 L, Estimated Creat Clear 120, Estimated GFR 141, Est GFR ( Amer) 171, Glucose 136 H, Calcium 8.5 D Vital Signs - 24 hr 06/22/20 12:00 06/22/20 16:00 06/22/20 20:00 Temperature 98.9 F 98.8 F 98.3 F Pulse Rate 70 90 Pulse Rate [Right Brachial] 92 H 83 88 Respiratory Rate 16 20 18 Blood Pressure [Left Arm] 132/76 136/71 Blood Pressure [Right Arm] 147/83 H 02 Sat by Pulse Oximetry 97 95 94 L 06/23/20 04:00 Temperature 98.6 F Pulse Rate Pulse Rate [Right Brachial] 82 Respiratory Rate 18 Blood Pressure [Left Arm] 133/76 Blood Pressure [Right Arm] 02 Sat by Pulse Oximetry 95 I & O for Last 24 hours: Intake & Output 06/20/20 06/21/20 06/22/20 06/23/20 23:59 23:59 23:59 23:59 Intake Total 2153 / 2153 2364 / 2364 Output Total 1000 / 1000 Balance 1153 / 1153 2363 / 236 Weight 132 lb 131 lb 3.506 oz 130 lb - Constitutional no acute distress -
== END 2020-06-23 15:22 | disposition left against medical advice (07) ==
LOC: ER 12:51 → 2ND 13:02
PROVIDERS: Nurse Practitioner Family; Admitting Provider Family Medicine; Emergency Provider Emergency Medicine; PCP Family Medicine; Visit Provider Family Medicine
DX: F10.239 Alcohol dependence with withdrawal, unspecified (principal); I10 Essential (primary) hypertension; E86.0 Dehydration; Z72.0 Tobacco use; S42.032D Displaced fracture of lateral end of left clavicle, subsequent encounter for fracture with routine healing; Y90.2 Blood alcohol level of 40-59 mg/100 ml
CPT/HCPCS: 80048; 80053; 80305; 81001; 83690; 83735; 84100; 85025; 85610; 85730; 86328; 96365; 96366; 96375; 99284; G0378; J2405

== ENCOUNTER 2021-08-22 00:18 | Emergency (ER) | payer OTHER, SELFPAY ==
[2021-08-22 00:20] VITALS: BP 131/84; PULSE 121; RESP 18; TEMP 36.9; O2SAT 96; BMI 20.4
--- NOTE | 2021-08-22 00:47 | PC.NURSE ---
Pt does not want to go to [facility] after speaking with PD. informed.
--- NOTE | 2021-08-22 01:01 | HMH.EDPSYCH ---
ED Disposition Clinical Impression: Suicidal ideation Disposition: Home, Self-Care Condition on Discharge: Good Instructions: Psychosis, Suicidal Ideation-Adult Additional Instructions: Please follow up with your primary care physician in 2-3 days for further management. You have also been provided resources to outpatient psychiatry team to help strengthen your mental health. If any active thoughts of wanting to harm yourself please call a family member and come to the ED immediately. Referrals: Tania Geronimo [Primary Care Provider] - Time of Disposition: 01:35 - Critical Care Critical Care Time: No Attestation: On 08/22/21, the high probability of a clinically significant, sudden or life threatening deterioration of the following system(s) required my full and direct attention, intervention and personal management. The time I documented below is in addition to time spent performing reported procedures but includes the following listed in this critical care notation. Medical Decision Making - Medical Records Medical records reviewed: Yes: I reviewed the patient's medical records. - Todd Inquiry Pt receiving controlled substance: No Vital Signs: 08/22/21 00:20 Temperature 98.4 F Temperature Source Oral Pulse Rate [Right Radial] 121 H Respiratory Rate 18 Blood Pressure [Right Arm] 131/84 Blood Pressure Mean [Right Arm] 99 Blood Pressure Source [Right Arm] Automatic Cuff Blood Pressure Position [Right Arm] Sitting 02 Sat by Pulse Oximetry 96 Oxygen Delivery Method Room Air - Lab Data Lab results reviewed: Yes: I reviewed the patient's lab results. Lab Results 08/22/21 01:04: WBC 7.9, RBC 4.54 L, Hgb 15.6, Hct 49.3, MCV 108.6 H, MCH 34.3 H, MCHC 31.6 L, RDW 14.1, Plt Count 88 L, MPV 8.9, Neut % (Auto) 60.8, Lymph % (Auto) 26.8, [place] % (Auto) 6.0, Eos % (Auto) 4.8, Baso % (Auto) 1.6, Neut # (Auto) 4.8, Lymph # (Auto) 2.1, [place] # (Auto) 0.5, Eos # (Auto) 0.4, Baso # (Auto) 0.1 08/22/21 01:04: Sodium 134 L, Potassium 3.7, Chloride 102, Carbon Dioxide 21 L, Anion Gap 14.7, BUN 14, Creatinine 0.80, Estimated Creat Clear 106, Estimated GFR 101, Est GFR ( Amer) 122, Glucose 122 H, Calcium 9.2, Total Bilirubin 2.0 H, AST 147 H, ALT 108 H, Alkaline Phosphatase 135 H, Total Protein 8.2 D, Albumin 4.3, Globulin 3.9 H, Albumin/Globulin Ratio 1.1 08/22/21 01:04: Plasma/Serum Alcohol 24 H Result diagrams: 08/22/21 01:04 08/22/21 01:04 Orders (Tests/Meds): ORDERS Category Date Time Status Comprehensive Metabolic Panel Stat Lab 08/22/21 01:04 Results Drug Screen,Urine Stat Lab 08/22/21 01:17 Received Thyroid Stimulating Hormone Stat Lab 08/22/21 01:04 Results Medical Decision Narrative: Mr. Delgado is a 55 yo male w/ PMH for alcoholism who presents to the ED for mental health evaluation. Patient is afebrile and hemodynamically stable on arrival. Physical exam is benign. Patient denies any active SI or HI, but reports thoughts of wanting to harm himself intermittently over the last few months. He also reports hallucinations auditory and visual. Differentials to consider but not limited to include: drug induced psychosis, metabolic/electrolyte abnormality, primary psychosis. Basic labs, TSH, UDS are obtained for further evaluation results are non actionable. Offered the patient transfer to [facility], but he refuses reporting he has been there prior. Being that the patient does not have active SI /HI will discharge into the care of his brother. Patient provided a referral to psychiatry team for further management. Patient instructed to return to the ED if he has active thoughts of SI or any other concerns. Patient has good support system with his x2 daughters who are nurses and his older brother who is a belting cutter. Patient's brother will stay with him tonight and will call psychiatry team in the morning. Patient discharged in stable condition. Psych HPI - General Chief Complaint: Psychiatric
--- NOTE | 2021-08-22 01:07 | PC.NURSE ---
Pt will be released with Officer Brigitte and Pt's brother with instructions to follow up with Psych. Brother is going to staff with [facility] and take him to see Diane Elias in the morning.
[2021-08-22 01:14] LABS: Basophils # 0.1 K/mm3 (0-0.2); Basophils % 1.6 % (0.1-2.0); Eosinophils # 0.4 K/mm3 (0.0-0.4); Eosinophils % 4.8 % (0.1-12.0); Hematocrit 49.3 % (42.0-52.0); Hemoglobin 15.6 g/dL (14.1-18.0); Lymphocytes # 2.1 K/mm3 (0.7-4.5); Lymphocytes % 26.8 % (10-50); Mean Corpuscular HGB Conc 31.6 g/dL (31.8-35.4); Mean Corpuscular Hemoglobin 34.3 pg (27.0-31.2); Mean Corpuscular Volume 108.6 fl (80-94); Mean Platelet Volume 8.9 fl (7.4-10.4); Monocytes # 0.5 K/mm3 (0.1-1.0); Neutrophils # 4.8 K/mm3 (1.8-7.8); Neutrophils % 60.8 % (37.0-80.0); Platelet Count 88 K/mm3 (142-424); Red Blood Count 4.54 M/mm3 (4.60-6.20); Red Cell Distribution Width 14.1 % (11.5-17.5); White Blood Count 7.9 K/mm3 (4.8-10.8)
[2021-08-22 01:20] LABS: Alanine Aminotransferase 108 U/L (12-78); Albumin Level 4.3 g/dl (3.5-5.0); Albumin/Globulin Ratio 1.1 (1.1-1.8); Alkaline Phosphatase 135 U/L (38-126); Anion Gap 14.7 mEq/L (5-15); Aspartate Amino Transferase 147 U/L (17-59); Blood Urea Nitrogen 14 mg/dl (9-20); Calcium 9.2 mg/dl (8.4-10.2); Carbon Dioxide 21 mmol/L (22.0-30.0); Chloride 102 mmol/L (98-107); Creatinine Clearance Estimated 106 mL/min (50-200); Estimated Glomerular Filt Rate 101 ml/min (>60); Ethyl Alcohol 24 mg/dl (0-10); GFR (African American) 122 ML/MIN (>60); Globulin 3.9 g/dL (1.3-3.2); Glucose 122 mg/dl (74-100); Potassium 3.7 mmoL/L (3.5-5.1); Sodium 134 mmol/L (136-145); Total Protein,Serum 8.2 g/dl (6.3-8.2)
[2021-08-22 01:37] VITALS: BP 134/85; PULSE 108; RESP 18; TEMP 36.7; O2SAT 97
[2021-08-22 01:50] LABS: Thyroid Stimulating Hormone 1.27 uIU/mL (0.465-4.68)
[2021-08-22 01:51] LABS: Barbiturates Screen,Urine Negative ng/ml (<200)
[2021-08-22 01:52] LABS: Amphetamine/Metha Screen,Urine Negative ng/ml (<1000); Benzodiazepines Screen,Urine Negative ng/ml (<200)
[2021-08-22 01:53] LABS: Cannabinoid Screen,Urine Negative ng/ml (<50); Cocaine Screen,Urine Negative ng/ml (<300)
[2021-08-22 01:54] LABS: Methadone Screen,Urine Negative ng/ml (<300)
[2021-08-22 01:55] LABS: Opiate Screen,Urine Negative ng/ml (<300); Phencyclidine Screen,Urine Negative ng/ml (<25)
== END 2021-08-22 01:40 | disposition home or self-care (01) ==
PROVIDERS: Emergency Provider Student in an Organized Health Care Education/Training Program; PCP Family Medicine
DX: R45.851 Suicidal ideations (principal); F99 Mental disorder, not otherwise specified; R44.0 Auditory hallucinations; I10 Essential (primary) hypertension
CPT/HCPCS: 80053; 80305; 84443; 85025; 99282

== ENCOUNTER 2021-11-11 00:01 | Emergency (ER) | payer OTHER, SELFPAY ==
--- NOTE | 2021-11-10 00:17 | ECG_ITS ---
APPROVED REPORT Exam: Resting ECG HR:100 bpm ECG Measurements Heart Rate 100 AXES UT 120 P 48 QRSd 90 QRS 24 QT 329 T 15 QTc 386 Conclusion SINUS TACHYCARDIA LOW QRS VOLTAGE IN PRECORDIAL LEADS [QRS DEFLECTION < 1.0 mV IN CHEST LEADS] ABNORMAL RHYTHM ECG UNCONFIRMED REPORT Electronically signed by : Amilcar Medellin MD 11/11/2021 20:11:51
[2021-11-11 00:07] VITALS: BP 124/82; PULSE 78; RESP 18; TEMP 36.8; O2SAT 98; BMI 33.6
--- NOTE | 2021-11-11 00:14 | XR_ITS ---
PROCEDURE INFORMATION: Exam: XR Chest Exam date and time: 11/11/2021 12:46 AM Age: 56 years old Clinical indication: Other: Confusion TECHNIQUE: Imaging protocol: XR of the chest. Views: 1 view. COMPARISON: CR XR CHEST 2V 08/19/2019 3:09 PM FINDINGS: Lungs: Mild bibasilar atelectasis. A few hazy opacities are also seen in the bilateral perihilar regions, suspicious for atypical infection. Pleural spaces: No pleural effusion. No pneumothorax. Heart/Mediastinum: Normal heart size. Bones/joints: Remote right mid clavicle fracture. IMPRESSION: 1. Hazy bilateral perihilar opacities suspicious for atypical/viral infection. 2. Mild bibasilar atelectasis.
--- NOTE | 2021-11-11 00:15 | CT_ITS ---
PROCEDURE INFORMATION: Exam: CT Head Without Contrast Exam date and time: 11/11/2021 1:08 AM Age: 56 years old Clinical indication: Altered mental status/memory loss; Confusion or disorientation; Additional info: Confusion AMS TECHNIQUE: Imaging protocol: Computed tomography of the head without contrast. Radiation optimization: All CT scans at this facility use at least one of these dose optimization techniques: automated exposure control; mA and/or kV adjustment per patient size (includes targeted exams where dose is matched to clinical indication); or iterative reconstruction. COMPARISON: No relevant prior studies available. FINDINGS: Brain: Normal. No hemorrhage. Unremarkable white matter. No mass effect. Cerebral ventricles: No ventriculomegaly. Paranasal sinuses: Visualized sinuses are unremarkable. No fluid levels. Mastoid air cells: Visualized mastoid air cells are well aerated. Bones/joints: Unremarkable. No acute fracture. Soft tissues: Unremarkable. IMPRESSION: No acute intracranial abnormality.
--- NOTE | 2021-11-11 00:16 | CT_ITS ---
PROCEDURE INFORMATION: Exam: CT Abdomen And Pelvis With Contrast Exam date and time: 11/11/2021 1:14 AM Age: 56 years old Clinical indication: Bloating and other: AMS, confusion; Additional info: Abdominal swelling TECHNIQUE: Imaging protocol: Computed tomography of the abdomen and pelvis with contrast. Radiation optimization: All CT scans at this facility use at least one of these dose optimization techniques: automated exposure control; mA and/or kV adjustment per patient size (includes targeted exams where dose is matched to clinical indication); or iterative reconstruction. Contrast material: ISOVUE; Contrast volume: 75 ml; Contrast route: IV; COMPARISON: CR HIPCMRT XR hip RT 2-3V w/pelvis 08/11/2018 1:39 PM FINDINGS: Lungs: There are perihilar, patchy ground-glass opacities scattered throughout visualized lungs compatible with active or recent atypical/viral pneumonia. Mild linear subsegmental atelectasis at the lung bases. Liver: Cirrhotic morphology of the liver. Recanalized periumbilical vein. Gallbladder and bile ducts: Marked gallbladder distention. No calcified/radiopaque gallstones. No gallbladder wall thickening is seen. No biliary dilation. Pancreas: No peripancreatic edema or fluid. Main pancreatic duct is visible, but not frankly dilated. Spleen: Spleen is normal in size. A few calcified splenic granulomas are noted. Adrenal glands: Unremarkable. Kidneys and ureters: Symmetric, homogeneous enhancement of both kidneys. No hydronephrosis. Stomach and bowel: Nonspecific wall thickening of the gastric antrum. No small bowel dilation or obstruction. There is wall thickening of the sigmoid colon and rectum, which are relatively decompressed, suggesting proctocolitis. Remainder of the colon contains solid stool without wall thickening. Appendix: Normal appendix. Intraperitoneal space: Small volume perihepatic ascites. No pneumoperitoneum. Vasculature: No abdominal aortic aneurysm. Scattered atherosclerotic calcifications. There are numerous upper abdominal and periesophageal collaterals. Lymph nodes: No enlarged lymph nodes. Urinary bladder: Bladder partially fluid-filled, without evidence of wall thickening. Reproductive: Enlarged prostate gland containing calcifications. Bones/joints: Right total hip arthroplasty with incompletely visualized femoral stem. No acute fracture. Hemangioma in the L3 vertebral body. Spondylosis. Soft tissues: Small umbilical and bilateral inguinal hernias containing adipose tissue. Mild body wall edema in the flank regions. IMPRESSION: 1. Cirrhosis. Features of portal hypertension include small volume perihepatic ascites and numerous upper abdominal varices/collaterals. 2. Marked gallbladder distention, without evidence of gallbladder wall thickening or radiopaque stones, nonspecific. If there are referable symptoms, consider ultrasound. 3. Findings compatible with proctitis and sigmoid colitis. 4. Nonspecific wall thickening of the gastric antrum. 5. Patchy ground-glass opacities in the perihilar regions of the visualized lungs compatible with active or recent atypical pneumonia.
[2021-11-11 00:36] LABS: Basophils # 0.1 K/mm3 (0-0.2); Basophils % 1.1 % (0.1-2.0); Eosinophils # 0.4 K/mm3 (0.0-0.4); Eosinophils % 3.8 % (0.1-12.0); Hematocrit 39.6 % (42.0-52.0); Hemoglobin 12.5 g/dL (14.1-18.0); Lymphocytes # 2.7 K/mm3 (0.7-4.5); Lymphocytes % 23.9 % (10-50); Mean Corpuscular HGB Conc 31.5 g/dL (31.8-35.4); Mean Corpuscular Hemoglobin 37.2 pg (27.0-31.2); Mean Corpuscular Volume 118.2 fl (80-94); Mean Platelet Volume 9.1 fl (7.4-10.4); Monocytes # 0.6 K/mm3 (0.1-1.0); Monocytes % 5.7 % (1.7-9.3); Neutrophils # 7.3 K/mm3 (1.8-7.8); Neutrophils % 65.4 % (37.0-80.0); Platelet Count 83 K/mm3 (142-424); Red Blood Count 3.35 M/mm3 (4.60-6.20); Red Cell Distribution Width 15.5 % (11.5-17.5); White Blood Count 11.1 K/mm3 (4.8-10.8)
[2021-11-11 00:51] LABS: Coronavirus 19, PCR Not Detected (NotDetected); Influenza A, PCR Not Detected (NotDetected); Influenza B, PCR Not Detected (NotDetected); Microscopic, Urine URINE MICROSCOPIC (MICROSCOPIC)
[2021-11-11 00:55] LABS: Appearance,Urine CLEAR (Clear); Bilirubin,Urine Negative (Negative); Blood, Urine Negative (Negative); Color,Urine YELLOW (Yellow); Glucose,Urine (UA) Negative (Negative); Ketones,Urine Negative (Negative); Leukocyte Esterase,Urine Negative (Negative); Nitrate,Urine Negative (Negative); Protein,Urine Negative (Negative); Urobilinogen,Urine 0.2 EU/dl (0.2)
[2021-11-11 00:55] LABS: Alanine Aminotransferase 79 U/L (12-78); Albumin Level 3.5 g/dl (3.5-5.0); Alkaline Phosphatase 254 U/L (38-126); Amylase 104 U/L (30-110); Anion Gap 10.1 mEq/L (5-15); Aspartate Amino Transferase 109 U/L (17-59); Bilirubin,Total 0.5 mg/dl (0.2-1.3); Blood Urea Nitrogen 11 mg/dl (9-20); Carbon Dioxide 26 mmol/L (22.0-30.0); Chloride 109 mmol/L (98-107); Creatinine Clearance Estimated 168 mL/min (50-200); Estimated Glomerular Filt Rate 101 ml/min (>60); GFR (African American) 122 ML/MIN (>60); Globulin 3.4 g/dL (1.3-3.2); Glucose 121 mg/dl (74-100); Lipase 179 U/L (23-300); Potassium 4.1 mmoL/L (3.5-5.1); Sodium 141 mmol/L (136-145); Total Protein,Serum 6.9 g/dl (6.3-8.2)
[2021-11-11 00:57] LABS: Ethyl Alcohol 217 mg/dl (0-10)
[2021-11-11 00:59] LABS: INR 1.11 (0.9-1.1); Prothrombin Time 12.4 seconds (10.1-12.5)
[2021-11-11 01:02] LABS: Acetaminophen < 10 ug/ml (10-30); C-Reactive Protein 2.2 mg/L (0-4); Salicylate < 1.0 mg/dL (2.0-20.0)
[2021-11-11 01:04] LABS: Ammonia < 9 umol/L (9-30)
[2021-11-11 01:07] LABS: Erythrocyte Sedimentation Rate 35 mm/hr (0-20)
[2021-11-11 01:10] LABS: Barbiturates Screen,Urine Negative ng/ml (<200)
[2021-11-11 01:11] LABS: Amphetamine/Metha Screen,Urine Negative ng/ml (<1000); Benzodiazepines Screen,Urine Negative ng/ml (<200)
[2021-11-11 01:12] LABS: Cannabinoid Screen,Urine Negative ng/ml (<50)
[2021-11-11 01:12] LABS: Troponin I < 0.01 ng/ml (0.00-0.034)
[2021-11-11 01:13] LABS: Cocaine Screen,Urine Negative ng/ml (<300); Methadone Screen,Urine Negative ng/ml (<300)
[2021-11-11 01:14] LABS: Opiate Screen,Urine Negative ng/ml (<300); Phencyclidine Screen,Urine Negative ng/ml (<25)
[2021-11-11 01:15] LABS: Procalcitonin 0.101 ng/mL (0.0-2.0)
--- NOTE | 2021-11-11 01:27 | HMH.EDAMS ---
ED Disposition Clinical Impression: Bronchitis Alcohol intoxication Qualifiers: Complication of substance-induced condition: uncomplicated Qualified Code(s): F10.920 - Alcohol use, unspecified with intoxication, uncomplicated Cirrhosis of liver Qualifiers: Hepatic cirrhosis type: alcoholic cirrhosis Ascites presence: without ascites Qualified Code(s): K70.30 - Alcoholic cirrhosis of liver without ascites Disposition: Home, Self-Care Condition on Discharge: Good Instructions: DI for Cirrhosis Additional Instructions: see pcp for follow up and consider rehab Prescriptions: levoFLOXacin [Levaquin 500mg tab] 500 mg PO DAILY #7 tab Transmission Status: Pending to [facility] Referrals: Tania Geronimo [Primary Care Provider] - - Critical Care Critical Care Time: No Attestation: On 11/11/21, the high probability of a clinically significant, sudden or life threatening deterioration of the following system(s) required my full and direct attention, intervention and personal management. The time I documented below is in addition to time spent performing reported procedures but includes the following listed in this critical care notation. Medical Decision Making - Medical Records Medical records reviewed: Yes: I reviewed the patient's medical records. - Todd Inquiry Pt receiving controlled substance: No Vital Signs: 11/11/21 00:07 Temperature 98.2 F Temperature Source Oral Pulse Rate [Apical] 78 Respiratory Rate 18 Blood Pressure [Right Arm] 124/82 Blood Pressure Mean [Right Arm] 96 Blood Pressure Source [Right Arm] Automatic Cuff Blood Pressure Position [Right Arm] Sitting 02 Sat by Pulse Oximetry 98 Oxygen Delivery Method Room Air - Lab Data Lab results reviewed: Yes: I reviewed the patient's lab results. Lab Results 11/11/21 00:05: WBC 11.1 H, RBC 3.35 L, Hgb 12.5 L, Hct 39.6 L, MCV 118.2 H, MCH 37.2 H, MCHC 31.5 L, RDW 15.5, Plt Count 83 L, MPV 9.1, Neut % (Auto) 65.4, Lymph % (Auto) 23.9, [place] % (Auto) 5.7, Eos % (Auto) 3.8, Baso % (Auto) 1.1, Neut # (Auto) 7.3, Lymph # (Auto) 2.7, [place] # (Auto) 0.6, Eos # (Auto) 0.4, Baso # (Auto) 0.1, ESR 35 H 11/11/21 00:05: Sodium 141, Potassium 4.1, Chloride 109 H, Carbon Dioxide 26, Anion Gap 10.1, BUN 11, Creatinine 0.80, Estimated Creat Clear 168, Estimated GFR 101, Est GFR ( Amer) 122, Glucose 121 H, Calcium 8.0 L, Total Bilirubin 0.5, AST 109 H, ALT 79 H, Alkaline Phosphatase 254 H, Troponin I < 0.01, C-Reactive Protein 2.2, Total Protein 6.9, Albumin 3.5, Globulin 3.4 H, Albumin/Globulin Ratio 1.0 L, Amylase 104, Lipase 179, Procalcitonin 0.101 11/11/21 00:05: PT 12.4, INR 1.11 H 11/11/21 00:05: Plasma/Serum Alcohol 217 H 11/11/21 00:05: Salicylates < 1.0 L, Acetaminophen < 10 L 11/11/21 00:30: Ammonia < 9 L 11/11/21 00:43: Urine Color Yellow, Urine Appearance Clear, Urine pH 6.0, Ur Specific [place] 1.020, Urine Protein Negative, Urine Glucose (UA) Negative, Urine Ketones Negative, Urine Blood Negative, Urine Nitrate Negative, Urine Bilirubin Negative, Urine Urobilinogen 0.2, Ur Leukocyte Esterase Negative, Urine WBC 3-5 11/11/21 00:43: Urine Opiates Screen Negative, Urine Methadone Screen Negative, Ur Barbituates Screen Negative, Ur Phencyclidine Scrn Negative, Ur Amphetamines Screen Negative, U Benzodiazepines Scrn Negative, Urine Cocaine Screen Negative, U Marijuana (THC) Screen Negative 11/11/21 00:43: SARS-CoV-2 (PCR) Not detected, Influenza A Untype (PCR) Not detected, Influenza Type B (PCR) Not detected Result diagrams: 11/11/21 00:05 11/11/21 00:05 Orders (Tests/Meds): ED MEDICATIONS Generic Name Dose Route Start Last Admin Trade Name Freq PRN Reason Stop Dose Admin Lactated Ringer's 1,000 mls @ 999 mls/hr 11/11/21 00:30 11/11/21 00:29 Lactated Ringer's 1000 Ml Bag IV 11/11/21 01:30 999 mls/hr .Q1H1M JOHNNA Administration Discontinued Medications Generic Name Dose Route Start Last Admin Trade Name Freq PRN Re
[2021-11-11 02:39] VITALS: BP 120/80; PULSE 80; RESP 18; TEMP 36.8; O2SAT 99
[2021-11-12 06:49] LABS: ABG HCO3 20.1 mmhg (22.0-26.0); ABG PCO2 30.8 mmhg (35.0-45.0); ABG PH 7.43 mmol/L (7.35-7.45); ABG PO2 69.9 mmhg (80-100)
[2021-11-12 06:50] LABS: ABG Base Excess -4.2 mmol/L (-2.4-2.3); ABG Oxygen Saturation 94 % (90-100); Allen's Test ACCEPTABLE; Oxygen ROOM AIR %
[2021-11-12 06:51] LABS: Source Right Radial
== END 2021-11-11 03:07 | disposition home or self-care (01) ==
PROVIDERS: Emergency Provider Emergency Medicine; PCP Family Medicine
DX: J40 Bronchitis, not specified as acute or chronic (principal); K70.30 Alcoholic cirrhosis of liver without ascites; F10.129 Alcohol abuse with intoxication, unspecified; M25.551 Pain in right hip; M25.512 Pain in left shoulder; Z20.822 Contact with and (suspected) exposure to COVID-19; R41.82 Altered mental status, unspecified; R29.810 Facial weakness; R47.81 Slurred speech; I85.01 Esophageal varices with bleeding; I10 Essential (primary) hypertension; F17.210 Nicotine dependence, cigarettes, uncomplicated; Z82.49 Family history of ischemic heart disease and other diseases of the circulatory system
CPT/HCPCS: 70450; 71045; 74177; 80053; 80305; 80329; 81001; 82140; 82150; 82803; 83690; 84145; 84484; 85025; 85610; 85651; 86140; 93005; 96361; 96365; 99285; C9803; Q9967; U0003; U0005

== ENCOUNTER 2022-08-16 12:59 | Emergency (ER) | payer OTHER, SELFPAY ==
[2022-08-16 13:10] VITALS: BP 106/66; PULSE 96; RESP 20; TEMP 38.1; O2SAT 97; BMI 23.0
[2022-08-16 13:26] LABS: UTC Influenza A Antigen Negative (Negative)
--- NOTE | 2022-08-16 13:26 | EXP.UTC ---
Discharge Plan Disposition Patient Disposition: Home, Self-Care Condition: Good Prescriptions Prescriptions: New amoxicillin-pot clavulanate 875-125 mg Tablet 1 tab PO Q12H 7 Days Qty: 14 0RF No Action duloxetine 60 mg capsule,delayed release(DR/EC) 60 mg PO DAILY Qty: 90 3RF propranolol 40 mg tablet 40 mg PO DAILY Qty: 90 3RF prenat.vits,ping,jsm-uqip-jikrj Tablet 1 tab PO DAILY Qty: 90 3RF mupirocin 2 % ointment 1 applic topical TID Qty: 22 10RF Referrals Follow up/Referrals: Wilfredo Powell MD [Primary Care Provider] - See instructions Activity Restrictions/Add. Instructions Additional Instructions/Restrictions: *Monitor Temp, Over the counter Motrin or Tylenol as directed/as needed Tylenol every 4 hours and Motrin every 6 hours (as long as your family doctor has told you that you can take it) for fever or pain. and straight to ER if unable to lower temp less than 101.0 after medication given *Warm salt water gargles may help to soothe the throat *Throat Lozenges? *Warm fluids like tea with honey may help to soothe the throat? *Sleep elevated *Humidifier/Vaporizer Straight to ER for worsening or Life threatening symptoms Follow up IMMEDIATELY for new or worsening symptoms or no Noticeable improvement over the next 48-72 hours. 911 for difficulty breathing or swallowing Clinical Impressions Clinical Impression: Sinusitis Instructions Patient Instructions: DI for Sinusitis, Sinusitis, Acute Bronchitis Discharge ED Provider: Latasha Munguia [facility] [place], [place] General Stated complaint: congestion, cough, soa, h/a, body aches Mode of Arrival: Ambulatory Source of Information: Patient Limitations: No Limitations Time Seen by Provider: 08/16/22 13:27 Description of Symptoms (Recalled from Triage Doc. by RN): PATIENT C/O BODY ACHES, SNEEZING, COUGH AND RUNNY NOSE X 2 DAYS HEENT Symptoms (Recalled from RN notes): Yes Resp Symptoms (Recalled from RN notes): Yes Skin Symptoms (Recalled from RN notes): No MS Symptoms (Recalled from RN notes): No Functional Status (Recalled from RN notes): WNL History of Present Illness Provider Complaint: Patient states that he hasnt felt well for about 2-3 days States that he has been having nasal congestion, cough, sneezing on and off sinus congestion and pressure, and feeling achy States that he was worried that he may have the flu or sinus infection and wanted to get it checked before it got into his chest Related Data Previous Rx's Medication Instructions Recorded duloxetine 60 mg capsule,delayed 60 mg PO DAILY Depression #90 caps 06/18/22 release mupirocin 2 % topical ointment 1 applic topical TID #22 grams 06/18/22 prenat.vits,ping,old-vlml-tapvc 1 tab PO DAILY #90 tabs 06/18/22 propranolol 40 mg tablet 40 mg PO DAILY Hypertension #90 06/18/22 tabs amoxicillin 875 mg-potassium 1 tab PO Q12H 7 days #14 tabs 08/16/22 clavulanate 125 mg tablet Allergies Allergy/AdvReac Type Severity Reaction Status Date / Time No Known Drug Allergies Allergy Unknown Verified 06/18/22 09:26 [NKDA] Worker's Comp Is this a Worker's Comp case?: No [facility] Disclaimer: The information contained in this section may have been updated after the patient was seen, as this information can be updated by other users. Medical History (Updated 08/16/22 @ 13:41 by Latasha Munguia APRN) Anxiety Depressed Hypertension Liver disease Surgical History (Updated 08/16/22 @ 13:26 by Torie Wilhelm RN) Hip joint replacement status Social History (Updated 08/16/22 @ 13:26 by Torie Wilhelm RN) Smoking Status: Current every day smoker tobacco type: cigarettes packs per day: 1 alcohol intake: current substance use type: marijuana current occupational status: unemployed Travel in the last 8 weeks: None household members: children housing: apartment number of children: 4 current occupation: CLERICAL MANAGER AT [employer]
[2022-08-16 13:27] LABS: UTC Influenza B Antigen Negative (Negative)
[2022-08-16 13:43] VITALS: BP 116/78; PULSE 96; RESP 20; TEMP 38.1; O2SAT 97
== END 2022-08-16 13:46 | disposition home or self-care (01) ==
PROVIDERS: Emergency Provider Nurse Practitioner; PCP Family Medicine
DX: J32.9 Chronic sinusitis, unspecified (principal)
CPT/HCPCS: 87804; 99212; G0463

== ENCOUNTER → 2022-10-10 07:20 | Outpatient (CLI) | payer OTHER, SELFPAY ==
--- NOTE | 2022-10-10 07:20 | CT_ITS ---
FINAL REPORT TECHNIQUE: Axial CT images of the chest were obtained without contrast. Low-dose protocol was utilized. This study was performed with techniques to keep radiation doses as low as reasonably achievable (ALARA). Individualized dose reduction techniques using automated exposure control or adjustment of mA and/or kV according to the patient's size were employed. CLINICAL HISTORY: lung cancer screening CURRENT SMOKER 1PPD X40 YEARS, FAMILY HX LUNG CANCER COMPARISON: none FINDINGS: CT CHEST WITHOUT, LOW DOSE SCREENING CT Di Vol: 2.90 mGy DLP: 98.47 mGy*cm There is no axillary, mediastinal, or hilar adenopathy. The heart size is normal. There is no pleural or pericardial effusion. The lung windows show a 6 mm ground-glass nodule in the lingula seen on image 56. There are two right lower lobe nodules both measuring 4 mm seen on images 42 and 40. Granulomatous disease is noted. There is a small soft tissue density in the right mainstem bronchus on image 31 which may be secretions. Soft tissue nodule not excluded. Limited images of the upper abdomen demonstrate nodular liver consistent with cirrhosis. No acute abnormalities. IMPRESSION: LR Category 4A due to small nodule right mainstem bronchus: Diagnostic chest CT recommended. Modifier S: Cirrhosis. Reviewed, Interpreted and Dictated by Sofia Epstein MD Transcribed by Juliana Franklin Authenticated and [facility]
== END ==
PROVIDERS: PCP Family Medicine; Visit Provider Family Medicine
DX: Z87.891 Personal history of nicotine dependence (principal); Z12.2 Encounter for screening for malignant neoplasm of respiratory organs; R06.09 Other forms of dyspnea
CPT/HCPCS: 71271; 94060

== ENCOUNTER → 2022-10-25 10:10 | Outpatient (CLI) | payer OTHER, SELFPAY ==
--- NOTE | 2022-10-25 10:10 | CT_ITS ---
FINAL REPORT TECHNIQUE: Thin section axial images were obtained from the lung apices through the upper abdomen without contrast. This study was performed with techniques to keep radiation doses as low as reasonably achievable (ALARA). Individualized dose reduction techniques using automated exposure control or adjustment of mA and/or kV according to the patient's size were employed. CLINICAL HISTORY: nodule of r mainstream Bronchus, c/o SOA, CP, tightness x yrs. Smoker, hx asthma. COMPARISON: 07/28/2021 & 10/10/2022 screen FINDINGS: There is no mediastinal, hilar, or axillary lymphadenopathy. There is no pleural or pericardial effusion. The previously identified small pulmonary nodules along the right mainstem bronchus are not present and likely secretions. There is evidence of granulomatous disease. There are several less than 5 mm right lower lobe nodules which are unchanged. There is a tiny nodule along the left major fissure which is unchanged. No consolidation or new abnormality identified. Limited, unenhanced evaluation of the upper abdomen demonstrates a nodular contour to the liver consistent with cirrhosis. No acute abnormality identified. There is no acute osseous abnormality. IMPRESSION: Small nodules in the right mainstem bronchus no longer visualized, likely secretions. Stable very small pulmonary nodules. No acute abnormality. Reviewed, Interpreted and Dictated by Sofia Epstein MD Transcribed by Juliana Franklin Authenticated and [facility]
== END ==
PROVIDERS: PCP Family Medicine; Visit Provider Family Medicine
DX: R91.1 Solitary pulmonary nodule (principal)
CPT/HCPCS: 71250

== ENCOUNTER → 2022-10-30 07:24 | Outpatient (CLI) | payer OTHER, SELFPAY | PROVIDERS: PCP Family Medicine; Visit Provider Nurse Practitioner Family | DX: R06.09 Other forms of dyspnea (principal); R07.9 Chest pain, unspecified | CPT/HCPCS: 78452; 93017; 93306; A9502; J2785 ==

== ENCOUNTER 2022-11-26 08:58 | Day surgery (SDC) | payer OTHER, SELFPAY ==
[2022-11-26] VITALS (12 sets, daily range): BP systolic 114–132; BP diastolic 76–93; PULSE 74–94; RESP 16–18; O2SAT 93–99; BMI 21.8
--- NOTE | 2022-11-26 07:04 | IR_ITS ---
APPROVED REPORT Patient Location: Outpatient PROCEDURES Left heart catheterization Left ventriculogram Selective coronary angiogram Drug-eluting stent deployment to the ostial proximal mid and distal dominant right coronary contiguous manner INDICATION Coronary artery disease, Difficult angina pectoris, High risk abnormal Myoview Informed consent was obtained prior to the procedure. COMPLICATIONS None Estimated Blood Loss: Less than 10 mls TECHNIQUE One percent lidocaine used to anesthetize the right anterior aspect of the wrist. The right radial artery was accessed via the Seldinger technique. A 6 Turkish sheath was placed in the right radial artery. 150 mg magnesium sulfate, 800 mcg of nitroglycerin, 1mg Lidocaine and 5000 U Heparin were given through the arterial sheath. The papa catheter was also used to perform left heart catheterization, left ventriculogram and selective coronary angiogram. At the end the diagnostic angiogram therapeutic heparin was administered giving a therapeutic ACT and the guide catheter was placed in the right coronary followed by Choice PT extra-support wire. 3 mm x 38 mm resolute [place] stent was deployed in the ostial proximal segment of the right coronary artery at 18 serina reducing the stenosis. An additional 3 mm x 26 mm resolute frontier stent was then placed distal to the first stent yet still overlapping and deployed at 18 serina. An additional 2.75 x 12 mm resolute frontier stent was then deployed distal to the stent yet still overlapping it at 16 serina. The balloon was brought back and deployed at 24 serina to mesh the 2 stents. After achieving excellent angiograph results with CIPRIANO-3 flow being present before and after the procedure the apparatus was removed the sheath was removed and hemostasis was achieved and TR banding patient was transferred to the postop putting in stable condition ANGIOGRAPHIC RESULTS The left main artery Normal The left anterior descending artery Has proximal 30% stenosis and a mid vessel calcified 40 to 50% stenosis The circumflex artery There is a dominant vessel and gives rise to a moderate ramus intermedius which has a proximal 50% calcified stenosis while the circumflex artery has proximal 30 to 40% stenoses in the long 50% stenosis after a large first obtuse marginal artery. This portion of the circumflex artery which has a 50% stenosis supplies a moderate-sized terminal obtuse marginal artery/posterior descending artery The right coronary artery Is nondominant yet still large vessel which has proximal 70% with additional 80% stenoses The MCCARTY ventriculogram reveals Not performed The left ventricular end-diastolic pressure Not measured IMPRESSION Coronary disease as described above Successful reconstruction of a nondominant yet still large right coronary as described above severe disease reduced to 0% with 3 contiguous drug-eluting stents Persistent moderate stenosis throughout the LAD ramus intermedius and dominant circumflex artery PLAN 1. Dual antiplatelet therapy 2. Medical management on remaining coronary disease at this time 3. LDL less than 55 to be achieved with high intensity statin 4. Avoidance of tobacco products 5. Risk factor modification Electronically signed by : Kiko Flanagan MD 11/26/2022 13:20:34
[2022-11-26 09:50] LABS: Basophils # 0.2 K/mm3 (0-0.2); Basophils % 1.8 % (0.1-2.0); Eosinophils # 0.8 K/mm3 (0.0-0.4); Eosinophils % 7.6 % (0.1-12.0); Hematocrit 49.4 % (42.0-52.0); Lymphocytes # 2.3 K/mm3 (0.7-4.5); Lymphocytes % 22.4 % (10-50); Mean Corpuscular HGB Conc 30.4 g/dL (31.8-35.4); Mean Corpuscular Hemoglobin 31.9 pg (27.0-31.2); Mean Corpuscular Volume 104.9 fl (80-94); Mean Platelet Volume 7.7 fl (7.4-10.4); Monocytes # 0.6 K/mm3 (0.1-1.0); Monocytes % 5.8 % (1.7-9.3); Neutrophils # 6.3 K/mm3 (1.8-7.8); Neutrophils % 62.4 % (37.0-80.0); Platelet Count 154 K/mm3 (142-424); Red Blood Count 4.71 M/mm3 (4.60-6.20); Red Cell Distribution Width 15.6 % (11.5-17.5); White Blood Count 10.1 K/mm3 (4.8-10.8)
[2022-11-26 10:10] LABS: Chloride 104 mmol/L (98-107); Potassium 3.7 mmoL/L (3.5-5.1); Sodium 138 mmol/L (136-145)
[2022-11-26 10:13] LABS: Blood Urea Nitrogen 7 mg/dl (9-20); Creatinine Clearance Estimated 130 mL/min (50-200); Estimated Glomerular Filt Rate 117 ml/min (>60); GFR (African American) 142 ML/MIN (>60)
[2022-11-26 10:14] LABS: Anion Gap 13.7 mEq/L (5-15); Calcium 8.8 mg/dl (8.4-10.2); Carbon Dioxide 24 mmol/L (22.0-30.0); Glucose 129 mg/dl (74-100)
[2022-11-26 14:31] LABS: CATHL Activated Clotting Time 310 SEC (74-125)
--- NOTE | 2022-11-26 15:23 | P.CONPHA_ITS ---
PHA Detective Captain Discharge Med Porcelain Enameling Supervisor: Lopez Delgado has received discharge medication counseling on the following medications: ASPIRIN 81 MG DAILY ATORVASTATIN 40 MG HS PROPRANOLOL 40 MG DAILY BRILINTA 90 MG BID MD NOT STARTING NELL/ARB AT THIS TIME DUE TO BLOOD PRESSURE.
== END 2022-11-26 16:02 | disposition home or self-care (01) ==
LOC: CATHLAB 08:59
PROVIDERS: PCP Family Medicine; Visit Provider Internal Medicine
DX: I25.118 Atherosclerotic heart disease of native coronary artery with other forms of angina pectoris (principal); F17.210 Nicotine dependence, cigarettes, uncomplicated; I10 Essential (primary) hypertension; K70.30 Alcoholic cirrhosis of liver without ascites; R94.30 Abnormal result of cardiovascular function study, unspecified; I77.810 Thoracic aortic ectasia; I51.7 Cardiomegaly; Z79.899 Other long term (current) drug therapy
CPT/HCPCS: 80048; 85025; 85347; 92928; 93458; 99152; 99153; C1725; C1769; C1874; C1876; C9600; J1644; Q9967

== ENCOUNTER → 2023-06-09 12:13 | Outpatient (CLI) | payer OTHER, SELFPAY ==
[2023-06-09 13:10] LABS: Basophils # 0.1 K/mm3 (0-0.2); Basophils % 0.6 % (0.1-2.0); Eosinophils # 0.5 K/mm3 (0.0-0.4); Eosinophils % 6.4 % (0.1-12.0); Hematocrit 42.6 % (42.0-52.0); Hemoglobin 14.1 g/dL (14.1-18.0); Lymphocytes # 1.6 K/mm3 (0.7-4.5); Mean Corpuscular HGB Conc 33.1 g/dL (31.8-35.4); Mean Corpuscular Hemoglobin 33.9 pg (27.0-31.2); Mean Corpuscular Volume 102.5 fl (80-94); Mean Platelet Volume 7.8 fl (7.4-10.4); Monocytes # 0.5 K/mm3 (0.1-1.0); Monocytes % 6.2 % (1.7-9.3); Neutrophils # 5.8 K/mm3 (1.8-7.8); Neutrophils % 67.7 % (37.0-80.0); Platelet Count 147 K/mm3 (142-424); Red Blood Count 4.16 M/mm3 (4.60-6.20); Red Cell Distribution Width 14.7 % (11.5-17.5); White Blood Count 8.5 K/mm3 (4.8-10.8)
[2023-06-09 13:43] LABS: Alanine Aminotransferase 30 U/L (12-78); Albumin Level 3.6 g/dl (3.5-5.0); Alkaline Phosphatase 134 U/L (38-126); Anion Gap 10.6 mEq/L (5-15); Aspartate Amino Transferase 37 U/L (17-59); Bilirubin,Direct 0.2 mg/dl (0.0-0.4); Bilirubin,Indirect 0.4 mg/dL (0.0-0.9); Bilirubin,Total 0.6 mg/dl (0.2-1.3); Bilirubin,Unconjugated 0.4 mg/dL (0.0-1.1); Blood Urea Nitrogen 6 mg/dl (9-20); Calcium 9.1 mg/dl (8.4-10.2); Carbon Dioxide 26 mmol/L (22.0-30.0); Chloride 106 mmol/L (98-107); Chol/HDL Ratio 2.2 (1-3.5); Cholesterol 65 mg/dl (140-200); Estimated Glomerular Filt Rate 100 ml/min (>60); GFR (African American) 121 ML/MIN (>60); Glucose 110 mg/dl (74-100); HDL Cholesterol 29 mg/dl (40-60); Potassium 4.6 mmoL/L (3.5-5.1); Sodium 138 mmol/L (136-145); Total Protein,Serum 6.9 g/dl (6.3-8.2); Triglycerides 50 mg/dl (30-150); VLDL Cholesterol 10 mg/dL (0-40)
[2023-06-09 13:59] LABS: Free T4 (Free Thyroxine) 1.18 ng/dl (0.78-2.19)
[2023-06-09 14:13] LABS: Thyroid Stimulating Hormone 0.84 uIU/mL (0.465-4.68)
[2023-06-09 16:01] LABS: Hemoglobin A1C 5.5 % (4.0-6.0)
== END ==
PROVIDERS: Physician Assistant; PCP Family Medicine; Visit Provider Nurse Practitioner
DX: I25.10 Atherosclerotic heart disease of native coronary artery without angina pectoris (principal); I11.9 Hypertensive heart disease without heart failure; I73.9 Peripheral vascular disease, unspecified; I77.810 Thoracic aortic ectasia; R06.00 Dyspnea, unspecified; K74.60 Unspecified cirrhosis of liver; R09.89 Other specified symptoms and signs involving the circulatory and respiratory systems; F17.200 Nicotine dependence, unspecified, uncomplicated
CPT/HCPCS: 36415; 80048; 80061; 80076; 83036; 84439; 84443; 85025

== ENCOUNTER → 2023-06-10 07:44 | Outpatient (CLI) | payer OTHER, SELFPAY ==
--- NOTE | 2023-06-10 07:45 | CT_ITS ---
FINAL REPORT CLINICAL HISTORY: with bilateral LE runoff discoloration of feet COMPARISON: None FINDINGS: Thin section axial CT images of the mid abdomen, pelvis and lower extremities were obtained with contrast. Multiplanar reformatted images were also obtained and reviewed. ABDOMEN AND PELVIS: There is no abdominal aortic aneurysm or dissection. The exam does not exclude the celiac axis, superior mesenteric artery, renal arteries, or inferior mesenteric artery. There are moderate vascular calcifications identified. There is streak artifact noted over the right side of the pelvis secondary to a hip arthroplasty. There is no significant stenosis of the right common iliac artery or external right iliac artery. There is no significant stenosis of the left common iliac artery or external left iliac artery. The internal iliac arteries are patent. RIGHT LOWER EXTREMITY: There is 40 to 50% stenosis of the right common femoral artery, and 30 to 40% stenosis of the right superficial femoral artery. The right deep femoral artery is patent. There is 40% stenosis of the popliteal artery with three-vessel runoff to the lower leg. LEFT LOWER EXTREMITY: There is 30% stenosis of the left common femoral artery. The left deep and superficial femoral arteries are patent. The left popliteal artery is patent. There is three-vessel runoff to the distal lower leg. IMPRESSION: 40 to 50% stenosis of the right common femoral artery, 30 to 40% stenosis of the proximal right superficial femoral artery, and 40% stenosis of the popliteal artery with three-vessel runoff. Less than 30% stenosis of the left common femoral artery, without significant stenosis in the remainder of the left leg. Reviewed, Interpreted and Dictated by Sathya Ocampo III, MD Transcribed by Vielka Diaz Authenticated and [facility]
== END ==
PROVIDERS: PCP Family Medicine; Visit Provider Physician Assistant
DX: I77.810 Thoracic aortic ectasia (principal); I25.10 Atherosclerotic heart disease of native coronary artery without angina pectoris; I73.9 Peripheral vascular disease, unspecified; K74.60 Unspecified cirrhosis of liver; F17.200 Nicotine dependence, unspecified, uncomplicated; I11.9 Hypertensive heart disease without heart failure
CPT/HCPCS: 75635; Q9967

== ENCOUNTER 2023-07-09 08:28 | Day surgery (SDC) | payer OTHER, SELFPAY ==
[2023-07-09] VITALS (9 sets, daily range): BP systolic 90–117; BP diastolic 45–92; PULSE 67–78; RESP 17–20; O2SAT 90–98; BMI 20.7
--- NOTE | 2023-07-09 07:10 | IR_ITS ---
APPROVED REPORT Patient Location: Outpatient Director Of Annual Giving: JOSIE Alberto RT (R) PROCEDURES Left femoral arterial access Catheter placement in the right common iliac artery Right common iliac artery antegrade angiogram with unilateral runoff to the right foot Catheter placed into the distal abdominal aorta Distal abdominal aortogram Left antegrade iliofemoral angiography INDICATION Tevin claudication class III, Abnormal CTA indicating right femoral artery stenosis and right SFA stenosis, Peripheral artery disease Informed consent was obtained prior to the procedure. COMPLICATIONS NONE Estimated Blood Loss: LESS THAN 10 ML TECHNIQUE 1% lidocaine used to anesthetize the left femoral groin. The left femoral artery was accessed via the Seldinger technique. Using fluoroscopic guidance a 5 [place] rim catheter was advanced into the distal abdominal aorta and used to cannulate the right common iliac artery. Right common iliac artery antegrade angiography was performed with unilateral runoff to the right foot. The catheter was then repositioned to the distal abdominal aorta were distal abdominal aortography was performed looking specifically at the bilateral common iliac arteries. At the end of procedure the apparatus was removed the groin is reprepped closure change sheath was removed and hemostasis achieved using Perclose device patient was transferred to the postop putting in stable condition ANGIOGRAPHIC RESULTS Distal abdominal aorta is patent Bilateral common iliac artery are calcified with no significant intraluminal defect greater than 10%. The left internal iliac artery has proximal calcified 50% stenosis while the external iliac artery has mild 10 to 20% plaque. The left common femoral artery is widely patent with mild 10 to 20% calcification. The proximal left profunda femoris artery and left superficial femoral artery are approximately patent Right internal iliac artery has a proximal 60 to 70% stenosis. The right external iliac artery has mild calcification with no stenosis greater than 10 to 20%. The right common femoral artery has 30% calcified stenosis which extends into the proximal right superficial femoral artery which also has 30% nonflow limiting stenosis. Right profunda femoris arteries widely patent. Right superficial femoral artery is widely patent with mild 10% plaque which gives inline flow to a widely patent right popliteal artery. The PT trunk has 60 to 70% calcification which is immediately proximal to the origin of the right anterior tibialis artery and the right peroneal artery. The right posterior tibialis artery appears to be proximally occluded. There is two-vessel runoff below the knee on the right IMPRESSION Calcification throughout the bilateral iliofemoral system none of which are flow-limiting at this point Moderate to severe stenosis at the PT trunk immediately proximal to the bifurcation of the anterior tibialis artery and the peroneal artery. Chronically occluded right posterior tibialis artery PLAN 1. Medical management at this point. Patient may be experiencing some calf claudication however the PT trunk stenosis is best managed medically unless patient experience [place] class IV 5 or 6. Percutaneous intervention would be less than desirable as there is a high likelihood of losing her the anterior tibialis artery or the peroneal artery. 2. LDL less than 55 to be achieved with high intensity statin 3. Consider Xarelto 2.5 twice daily plus aspirin 81 mg daily 4. Avoidance of tobacco products 5. Physical therapy Electronically signed by : Kiko Flanagan MD 07/09/2023 12:57:29
[2023-07-09 09:11] LABS: Basophils # 0.1 K/mm3 (0-0.2); Eosinophils # 0.6 K/mm3 (0.0-0.4); Eosinophils % 5.9 % (0.1-12.0); Hematocrit 46.1 % (42.0-52.0); Hemoglobin 15.6 g/dL (14.1-18.0); Lymphocytes # 1.9 K/mm3 (0.7-4.5); Lymphocytes % 19.6 % (10-50); Mean Corpuscular HGB Conc 33.8 g/dL (31.8-35.4); Mean Corpuscular Hemoglobin 34.1 pg (27.0-31.2); Mean Corpuscular Volume 100.9 fl (80-94); Monocytes # 0.5 K/mm3 (0.1-1.0); Neutrophils # 6.6 K/mm3 (1.8-7.8); Neutrophils % 68.4 % (37.0-80.0); Platelet Count 191 K/mm3 (142-424); Red Blood Count 4.57 M/mm3 (4.60-6.20); Red Cell Distribution Width 14.8 % (11.5-17.5); White Blood Count 9.7 K/mm3 (4.8-10.8)
[2023-07-09 09:21] LABS: Anion Gap 15.8 mEq/L (5-15); Blood Urea Nitrogen 6 mg/dl (9-20); Calcium 9.2 mg/dl (8.4-10.2); Carbon Dioxide 26 mmol/L (22.0-30.0); Chloride 102 mmol/L (98-107); Creatinine Clearance Estimated 96 mL/min (50-200); Estimated Glomerular Filt Rate 88 ml/min (>60); GFR (African American) 106 ML/MIN (>60); Glucose 124 mg/dl (74-100); Potassium 3.8 mmoL/L (3.5-5.1); Sodium 140 mmol/L (136-145)
== END 2023-07-09 16:58 | disposition home or self-care (01) ==
PROVIDERS: PCP Family Medicine; Visit Provider Internal Medicine
DX: I70.213 Atherosclerosis of native arteries of extremities with intermittent claudication, bilateral legs (principal); I25.10 Atherosclerotic heart disease of native coronary artery without angina pectoris; I77.1 Stricture of artery; F17.210 Nicotine dependence, cigarettes, uncomplicated; I77.810 Thoracic aortic ectasia; R93.5 Abnormal findings on diagnostic imaging of other abdominal regions, including retroperitoneum; Z79.899 Other long term (current) drug therapy; I10 Essential (primary) hypertension
CPT/HCPCS: 36247; 75625; 80048; 82565; 85025; 99152; 99153; C1725; C1760; C1769; C1894; J1644; Q9966

== ENCOUNTER 2024-04-14 09:55 | Outpatient (CLI) | payer OTHER, SELFPAY ==
[2024-04-14 11:12] LABS: Basophils # 0.1 K/mm3 (0-0.2); Basophils % 0.8 % (0.1-2.0); Eosinophils # 0.3 K/mm3 (0.0-0.4); Eosinophils % 2.6 % (0.1-12.0); Hematocrit 53.1 % (42.0-52.0); Hemoglobin 16.9 g/dL (14.1-18.0); Lymphocytes # 1.7 K/mm3 (0.7-4.5); Lymphocytes % 13.1 % (10-50); Mean Corpuscular HGB Conc 31.9 g/dL (31.8-35.4); Mean Corpuscular Hemoglobin 34.3 pg (27.0-31.2); Mean Corpuscular Volume 107.7 fl (80-94); Mean Platelet Volume 8.4 fl (7.4-10.4); Monocytes # 0.7 K/mm3 (0.1-1.0); Monocytes % 5.1 % (1.7-9.3); Neutrophils # 10.2 K/mm3 (1.8-7.8); Neutrophils % 78.4 % (37.0-80.0); Platelet Count 122 K/mm3 (142-424); Red Blood Count 4.93 M/mm3 (4.60-6.20)
[2024-04-14 11:29] LABS: Alanine Aminotransferase 64 U/L (12-78); Albumin Level 4.3 g/dl (3.5-5.0); Alkaline Phosphatase 78 U/L (38-126); Anion Gap 13.4 mEq/L (5-15); Aspartate Amino Transferase 71 U/L (17-59); Bilirubin,Direct 0.1 mg/dl (0.0-0.4); Bilirubin,Indirect 1.1 mg/dL (0.0-0.9); Bilirubin,Total 1.2 mg/dl (0.2-1.3); Bilirubin,Unconjugated 1.2 mg/dL (0.0-1.1); Blood Urea Nitrogen 8 mg/dl (9-20); Calcium 9.3 mg/dl (8.4-10.2); Carbon Dioxide 19 mmol/L (22.0-30.0); Chloride 109 mmol/L (98-107); Chol/HDL Ratio 2.8 (1-3.5); Cholesterol 94 mg/dl (140-200); Estimated Glomerular Filt Rate 100 ml/min (>60); GFR (African American) 121 ML/MIN (>60); Glucose 121 mg/dl (74-100); HDL Cholesterol 33 mg/dl (40-60); Potassium 4.4 mmoL/L (3.5-5.1); Sodium 137 mmol/L (136-145); Total Protein,Serum 7.8 g/dl (6.3-8.2); Triglycerides 118 mg/dl (30-150); VLDL Cholesterol 24 mg/dL (0-40)
[2024-04-14 11:42] LABS: Direct LDL Cholesterol 38.41 mg/dL (100-129)
[2024-04-14 11:57] LABS: Free T4 (Free Thyroxine) 0.91 ng/dl (0.78-2.19)
[2024-04-14 12:00] LABS: Thyroid Stimulating Hormone 1.45 uIU/mL (0.465-4.68)
== END 2024-04-14 23:59 | disposition home or self-care (01) ==
LOC: LAB 09:56
PROVIDERS: PCP Family Medicine; Visit Provider Nurse Practitioner
DX: I11.9 Hypertensive heart disease without heart failure (principal); R20.0 Anesthesia of skin; R20.2 Paresthesia of skin; R09.89 Other specified symptoms and signs involving the circulatory and respiratory systems; I73.9 Peripheral vascular disease, unspecified; I25.10 Atherosclerotic heart disease of native coronary artery without angina pectoris; I77.810 Thoracic aortic ectasia; K21.9 Gastro-esophageal reflux disease without esophagitis; R06.00 Dyspnea, unspecified; F17.210 Nicotine dependence, cigarettes, uncomplicated
CPT/HCPCS: 36415; 80048; 80061; 80076; 84439; 84443; 85025